=== PATIENT | female | born 1965 | race Caucasian/White ===

== ENCOUNTER → 2016-10-07 | Outpatient (CLI) | payer BC ==
[~2016-10-07] MED LIST: B COCAP3 PO; CALC600T9 PO; CETI10TA99 PO; GLC500 PO; MULTTAB58 PO
== END | disposition home or self-care (01) ==
LOC: C.PAPS 14:20
PROVIDERS: ATTEND Obstetrics & Gynecology
DX: Z01.419 Encounter for gynecological examination (general) (routine) without abnormal findings (principal)

== ENCOUNTER → 2016-11-27 | Outpatient (CLI) | payer BC ==
[2016-11-27 11:01] LABS: BASO % 0.5 %; BASO ABS # 0.04 K/uL (0-0.2); COMPLETE YES; EOS % 2.4 %; IG% 0.1 %; LYMPH % 29.2 %; LYMPH ABS # 2.53 K/uL (1.2-3.4); MEAN CELL VOLUME 85.7 fL (80-100); MEAN CORPUSCULAR HEMOGLOBIN 28.5 pg (25-34); MEAN CORPUSCULAR HGB CONC 33.3 g/dl (32-36); MEAN PLATELET VOLUME 10.1 fL (7.4-10.4); MONO % 6.5 %; NEUT % 61.3 %; PLATELET COUNT 364 K/uL (130-400); RED BLOOD COUNT 4.67 M/uL (4.2-5.4); WHITE BLOOD COUNT 8.66 K/uL (4.8-10.8)
[2016-11-27 11:18] LABS: ALT/SGPT 25 U/L (12-78); BLOOD UREA NITROGEN 12 mg/dl (7-18); BUN/CREATININE RATIO 18.5 (10-20); CALCIUM 9.1 mg/dl (8.5-10.1); CARBON DIOXIDE 27 mmol/L (21-32); CHLORIDE 106 mmol/L (98-107); CHOLESTEROL 188 mg/dl (0-200); CREATININE 0.67 mg/dl (0.60-1.20); GLUCOSE 96 mg/dl (70-99); POTASSIUM 3.9 mmol/L (3.5-5.1); SODIUM 141 mmol/L (136-145)
[2016-11-27 11:21] LABS: ALKALINE PHOSPHATASE 84 U/L (45-117); AST/SGOT 12 U/L (15-37); CHOLESTEROL/HDL RATIO 2.8; HDL CHOLESTEROL 67 mg/dl; LDL CHOLESTEROL CALCULATED 92 mg/dl; TRIGLYCERIDES 145 mg/dl (0-150); VERY LOW DENSITY LIPOPROT CALC 29 mg/dl
== END | disposition home or self-care (01) ==
LOC: C.LABBC 08:51
PROVIDERS: ATTEND Nurse Practitioner Family
DX: E88.81 Metabolic syndrome and other insulin resistance (principal); E78.1 Pure hyperglyceridemia; Z11.59 Encounter for screening for other viral diseases

== ENCOUNTER → 2017-03-04 | Outpatient (CLI) | payer BC ==
--- NOTE | 2017-03-04 15:31 | DIAGNOSTIC IMAGING REPORT ---
MRI THE RIGHT KNEE NO CONTRAST CLINICAL HISTORY: Right knee pain. History of recent trauma. COMPARISON STUDY: No previous studies for comparison. FINDINGS: Imaging was performed the sagittal, coronal, and axial planes. There is chondromalacia patella with subchondral marrow edema. There is no evidence of occult femoral or tibial or fibular fracture. The medial and lateral collateral ligaments appear intact. The anterior and posterior cruciate ligaments appear intact. No meniscal tears are visualized. IMPRESSION: 1. No evidence of cruciate or collateral ligament disruption 2. No evidence of meniscal tear 3. 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 03/04/2017 3:30 PM Dictated Date/Time: 03/04/2017 3:27 PM
== END | disposition home or self-care (01) ==
LOC: C.MRIBC 14:23
PROVIDERS: ATTEND Orthopaedic Surgery
DX: M25.561 Pain in right knee (principal)

== ENCOUNTER → 2017-03-15 | Outpatient (CLI) | payer BC ==
--- NOTE | 2017-03-17 12:32 | MAMMOGRAPHY REPORT ---
BILATERAL DIGITAL SCREENING MAMMOGRAM TOMOSYNTHESIS WITH CAD: 03/15/2017 CLINICAL HISTORY: Routine screening. Patient has no complaints. TECHNIQUE: Breast tomosynthesis in addition to standard 2D mammography was performed. Current study was also evaluated with a Computer Aided Detection (CAD) system. COMPARISON: Comparison is made to exams dated: 03/13/2016 mammogram, 03/11/2015 mammogram, 03/07/2014 ma mmogram, 01/23/2013 mammogram, 01/19/2012 mammogram, and 01/13/2011 mammogram - [facility] er. BREAST COMPOSITION: There are scattered areas of fibroglandular density in both breasts. FINDINGS: There are a few benign-appearing calcifications in the breasts. No suspicious mass, kobe ectural distortion or cluster of suspicious microcalcifications is seen. IMPRESSION: ACR BI-RADS CATEGORY 1: NEGATIVE There is no mammographic evidence of malignancy. A 1 year screening mammogram is recommended. The pa tient will receive written notification of the results. Approximately 10% of breast cancers are not detected with mammography. A negative mammographic report should not delay biopsy if a clinically suggestive mass is present. Ashley Elena M.D. ay/:03/15/2017 15:35:56 Pointing Machine Operator: Shirley PAYNE(R)(M), [facility] letter sent: Normal 1/2 BI-RADS Code: ACR BI-RADS Category 1: Negative
== END | disposition home or self-care (01) ==
LOC: C.MAMM 07:27
PROVIDERS: ATTEND Obstetrics & Gynecology
DX: Z12.31 Encounter for screening mammogram for malignant neoplasm of breast (principal)

== ENCOUNTER → 2017-05-14 | Outpatient (CLI) | payer BC ==
[2017-05-14 10:57] LABS: BASO % 0.4 %; BASO ABS # 0.03 K/uL (0-0.2); COMPLETE YES; EOS % 3.4 %; HEMATOCRIT 39.7 % (37-47); IG% 0.1 %; LYMPH % 29.6 %; LYMPH ABS # 2.38 K/uL (1.2-3.4); MEAN CELL VOLUME 86.1 fL (80-100); MEAN CORPUSCULAR HEMOGLOBIN 29.1 pg (25-34); MEAN CORPUSCULAR HGB CONC 33.8 g/dl (32-36); MEAN PLATELET VOLUME 10.4 fL (7.4-10.4); MONO % 7.8 %; NEUT % 58.7 %; PLATELET COUNT 361 K/uL (130-400); RED BLOOD COUNT 4.61 M/uL (4.2-5.4); WHITE BLOOD COUNT 8.05 K/uL (4.8-10.8)
[2017-05-14 11:09] LABS: ALT/SGPT 49 U/L (12-78); AST/SGOT 26 U/L (15-37); BLOOD UREA NITROGEN 12 mg/dl (7-18); BUN/CREATININE RATIO 14.4 (10-20); CALCIUM 8.9 mg/dl (8.5-10.1); CARBON DIOXIDE 29 mmol/L (21-32); CHLORIDE 104 mmol/L (98-107); CREATININE 0.81 mg/dl (0.60-1.20); GLUCOSE 93 mg/dl (70-99); POTASSIUM 3.7 mmol/L (3.5-5.1); SODIUM 139 mmol/L (136-145)
[2017-05-14 11:12] LABS: ALB/GLOB RATIO 0.8 (0.9-2); ALKALINE PHOSPHATASE 100 U/L (45-117); CHOLESTEROL 196 mg/dl (0-200); CHOLESTEROL/HDL RATIO 2.6; HDL CHOLESTEROL 76 mg/dl; LDL CHOLESTEROL CALCULATED 95 mg/dl; TRIGLYCERIDES 124 mg/dl (0-150); VERY LOW DENSITY LIPOPROT CALC 25 mg/dl
[2017-05-14 11:23] LABS: ESTIMATED AVERAGE GLUCOSE 114 mg/dl; HA1C FLAG Normal (Normal)
[2017-05-14 11:31] LABS: RATIO 18.6 mcg/mg (0-30.0)
== END | disposition home or self-care (01) ==
LOC: C.LABBC 08:06
PROVIDERS: ATTEND Nurse Practitioner Family
DX: E88.81 Metabolic syndrome and other insulin resistance (principal); J45.909 Unspecified asthma, uncomplicated; E78.1 Pure hyperglyceridemia; E66.9 Obesity, unspecified

== ENCOUNTER → 2017-10-19 | Outpatient (CLI) | payer OTHER | END | disposition home or self-care (01) | LOC: C.PAPS 12:02 | PROVIDERS: ATTEND Obstetrics & Gynecology | DX: Z01.419 Encounter for gynecological examination (general) (routine) without abnormal findings (principal) ==

== ENCOUNTER 2022-09-16 22:04 | Observation (INO) ==
[2022-09-16 22:58] LABS: Basophils # (auto) 0.07 K/uL (0-0.2); Basophils % (auto) 0.6 %; Eosinophils # (auto) 0.23 K/uL (0-0.50); Eosinophils % (auto) 1.8 %; Hematocrit (blood only) 37.6 % (34.1-44.9); Hemoglobin 12.7 g/dl (12.0-16.0); Immature Granulocytes # (auto) 0.08 K/uL (0.00-0.02); Immature Granulocytes % (auto) 0.6 %; Lymphocytes # (auto) 2.35 K/uL (1.2-3.4); Lymphocytes % (auto) 18.8 %; Mean Corpuscular Hemoglobin 28.5 pg (25.0-34.0); Mean Corpuscular Hgb Conc 33.8 g/dL (32.0-36.0); Mean Corpuscular Volume 84.5 fL (80.0-100.0); Mean Platelet Volume 9.7 fL (9.4-12.3); Monocytes # (auto) 0.79 K/uL (0.24-0.82); Monocytes % (auto) 6.3 %; Neutrophils # (auto) 9.01 K/uL (1.4-6.5); Neutrophils % (auto) 71.9 %; Platelet Count 550 K/uL (130-400); RDW Standard Deviation 40.2 fL (36.4-46.3); Red Blood Count 4.45 M/uL (3.93-5.22); White Blood Count 12.53 K/ul (4.8-10.8)
[2022-09-16 23:02] LABS: Appearance Urine Cloudy (Clear); Bacteria Urine Automated Negative (Negative); Blood Urine Negative (Negative); Color Urine Dark Yellow; Epithelial Cell Urine Auto >30 /lpf (0-5); Glucose Urine UA Negative (Negative); Ketones Urine Trace (Negative); Leukocyte Esterase Urine 1+ (Negative); Nitrite Urine Positive (Negative); Protein Urine 1+ (Negative); RBC Urine Automated 0-4 /hpf (0-4); Specific Gravity Urine 1.026 (1.000-1.030); Urobilinogen Urine Negative (Negative)
[2022-09-16 23:08] LABS: Bilirubin Urine 3+ (Negative)
[2022-09-16 23:18] LABS: Cast Urine Automated 0 /lpf (0-5); Mucus Urine Present (None Prsent)
[2022-09-16 23:22] LABS: Albumin Globulin Ratio 1.1 (0.9-2); BUN Creatinine Ratio 19.7 (10-20); Bilirubin,Total 3.1 mg/dl (0.2-1.0); Calcium 9.9 mg/dl (8.5-10.1); Creatinine Clr Calc Pharmacy 84.5 ml/min; Est GFR (African American) 99.5 ml/min; Est GFR (Non-African American) 85.9 ml/min; Globulin 3.5 gm/dl (2.5-4.0); Potassium 2.9 mmol/L (3.5-5.1); Total Protein 7.5 gm/dl (6.0-8.3)
[2022-09-16] MEDS ORDERED: ONDANSETRON INJ 2 MG/ML 2 ML VIAL IV STA (23:53)
[2022-09-16] MEDS ORDERED: MoRPHine SULFATE 4 MG/ML 1 ML CARP\\VIAL IV STA (23:53)
[2022-09-16] MEDS ORDERED: LACTATED RINGER'S 1,000 ML IV ONE (23:54)
[2022-09-17 00:05] LABS: Magnesium 2.1 mg/dl (1.7-2.4)
[2022-09-17] MEDS ORDERED: SODIUM CHLORIDE 0.9% 1000ML 1,000 ML IV ONE (00:05)
--- NOTE | 2022-09-17 00:06 | Emergency Department Note ---
Impression & Plan Acute cholecystitis, Transaminitis, Nausea & vomiting, Hypokalemia ED Provider Note Provider: Zachariah Friedman MD DATE OF SERVICE: 09/16/2022 CHIEF COMPLAINT: Right upper abdominal pain, nausea HISTORY OF PRESENT ILLNESS: Patient is a 57-year-old female history of hypertension, GERD/gastritis, IBS, prior resected ovarian mass, and diabetes presenting here today with onset of waxing waning right upper quadrant pain rating to the right back over the past approximate week. Symptoms coming and going but likely provoked by food. Vomiting and nausea at times. Not able to keep down food or drink. Feeling dehydrated. No trauma or fevers reported. No other sick contacts. Reports that urine seems a bit orange in color. Has been using some Tylenol without significant improvement of symptoms. Sweaty and chills at times. Did talk with GI doctor today who gave her pantoprazole which she has not taken yet. PAST MEDICAL HISTORY: As noted above MEDICATIONS: Reviewed home medications SOCIAL HISTORY: Non-smoker PHYSICAL EXAM: GENERAL: alert and oriented grabbing her upper abdomen appears uncomfortable on the bed Head: normocephalic and atraumatic EYES: No injection, discharge or icterus. NECK: Trachea midline. Supple. ENT: Mucous membranes pink and moist. LUNGS: Airway patent. No retractions. Breath sounds clear HEART: Regular rate and rhythm. Some right lower chest wall tenderness ABDOMEN: Soft significant tenderness in the right upper quadrant of the abdomen. No lower abdominal tenderness. BACK: Some tenderness to the right flank in the upper abdomen and flank SKIN: Acyanotic, warm, dry, without rashes EXTREMITIES: Without swelling, tenderness or deformity NEUROLOGICAL: No focal deficits. No aphasia. No facial droop or slurred speech. Ambulatory. EK bpm normal sinus rhythm. No PVC or PAC. No acute ST segment elevation or depression with a QTC of 450. CONTINUOUS CARDIAC MONITORING: was ordered and showed a heart rate of 80s-100s bpm in normal sinus rhythm to sinus tachycardia Patient's laboratory studies and imaging reviewed. Differential includes Appendicitis, infections, diverticulitis, UTI/pyelonephritis, obstruction, mesenteric ischemia, aortic pathology, inflammatory bowel disease, renal colic, PUD, pancreatitis, biliary pathology, h ernia, volvulus, constipation, PE, cardiac, as well as other pathologies. IMPRESSION/MEDICAL DECISION MAKING: Patient with significant right upper quadrant pain radiation to the right back with some tenderness significantly in the right upper quadrant. Nausea and vomiting. No trauma history. No sick contacts. Do not see a reason for acute infectious hepatitis. Urinalysis and basic labs obtained. Some hypokalemia noted. Decreased intake likely related. Given some IV fluids. Slight melina kocytosis. No anemia. Urinalysis questions possible infection although some contamination. Is nitrate positive. Bilirubin also mildly elevated 3.1. Lipase sent. EKG completed and doubt this is cardiac in nature; EKG is reassuring. Will complete a CT scan of the abdomen pelvis and given that the pain extends up and under the ribs and her appearance of significant discomfort we will additionally complete a CT of the chest as well to exclude pulmonary involvement. Hepatitis panel be sent for completeness. Lipase not elevated. CT scan of the chest was reassuring but the CT of the abdomen pelvis is concerning for acute cholecystitis. Discussed with general surgery. Patient with penicillin allergy. Ciprofloxacin and Flagyl ordered. Hospitalist to admit. DIAGNOSIS: Acute cholecystitis, elevated LFTs, nausea and vomiting, hypokalemia DISPOSITION: Evaluated by the surgery team as well as the hospitalist team. Preliminary Findings Only See Final Report For Complete Findings CTA CHEST: No evidence of PE. Lungs are clear. No pleural effusions. No adenopathy. Heart size is normal. Aorta is unremarkable. Radiologist: Jeb Hendrickson MD Study ready at 00:42 and initial results transmitted at 00:55 Preliminary Findings Only See Final Report For Complete Findings CT ABDOMEN & PELVIS With Contrast: CT findings would suggest acute cholecystitis. No cholelithiasis or biliary ductal dilatation seen on this examination but right upper quadrant ultrasound is recommended for more complete evaluation. Radiologist: Jeb Hendrickson MD Study ready at 00:42 and initial results transmitted at 00:56 Past Med/Surg History Medical History Asthma GERD (gastroesophageal reflux disease) High frequency hearing loss of both ears History of COVID-19 (~07/14/20) Hypertension Obesity Ovarian mass Sleep apnea Tinnitus, bilateral Surgical History History of back surgery History of section History of colonoscopy History of esophagogastroduodenoscopy (EGD) History of oral surgery History of tonsillectomy History of tubal ligation S/P total abdominal hysterectomy and bilateral salpingo-oophorectomy Family History Grandmother (Maternal) Breast cancer Father Myocardial infarction Stroke Hypertension Pure hypercholesterolemia FH: coronary artery bypass surgery Coronary heart disease Mother Hypertension Diabetes Supraventricular tachycardia Obesity Other Ulcerative colitis Denies family history of Colon cancer Ovarian cancer Prostate cancer Colorectal cancer Social History Smoking Status: Never smoker Tobacco Type: Cigarettes Age Started Using Tobacco: 12; Age Quit Using Tobacco: 30; Second Hand Exposure: No; Hx Alcohol Use: Yes Alcohol type: wine and hard liquor Alcohol Intake Frequency: Monthly or Less Hx Substance Use: No Preferred Language: Japanese Communication Ability: Effective Visual Impairment: No Limitations Hearing Ability: Normal Light Coil Winder Required: No Beliefs That Will Affect Care: None marital status: Current Living Situation: Spouse current occupational status: employed current occupation: [employer] Feels Safe at Home: Yes Childhood Exposure to Second-Hand Smoke: No Diet Comment: FODMAP? Dental Care, Regularly: Yes Physical Activity Frequency: 3-4 Times per Week Physical Activity Frequency Comment: walking Seatbelt Use: always Sunscreen Use: Yes Assistive Devices: Cane, Glasses and Walker Allergies Allergies Allergy/AdvReac Type Severity Reaction Status Date / Time losartan Allergy Severe Myalgia Verified 08/24/22 15:30 Penicillins Allergy Intermediate rash Verified 08/24/22 15:30 prednisone Allergy Intermediate reddness Verified 08/24/22 15:30 trunk bee venom protein (honey bee) Allergy Unknown Difficulty Verified 08/24/22 15:30 Breathing peach Allergy Unknown LIPS SWELL Verified 08/24/22 15:30 lactase [From Dairy Aid] AdvReac Intermediate abdominal Verified 08/24/22 15:30 bloating Home Meds Home Medications Medication Instructions Recorded Confirmed diclofenac sodium 75 mg 75 mg PO QAM 07/11/21 08/24/22 tablet,delayed release Previous Rx's Medication Instructions Recorded inhalational spacing device #1 ea 06/28/19 (LiteAire MDI Chamber) ipratropium 0.5 mg-albuterol 3 mg 3 ml inhalation QID PRN history of 07/24/20 (2.5 mg base)/3 mL nebulization acute bronchitis with bronchospasm soln #1 mL clobetasol 0.05 % topical ointment See Rx Instructions topical 09/03/21 .COMPLEX PRN lichen Sclerosus et atrophicus #30 grams mecobalamin (vitamin B12) 1,000 1,000 mcg sublingual DAILY #30 tabs 02/02/22 mcg disintegrating tablet,sublingual valacyclovir 500 mg tablet 500 mg PO BID PRN outbreak #6 tabs 04/06/22 (Valtrex) albuterol sulfate 90 mcg/actuation 1 inh inhalation Q6H PRN shortness 06/11/22 aerosol inhaler (Ventolin HFA) of breath or wheezing #18 grams losartan 50 mg-hydrochlorothiazide See Rx Instructions .Route 07/23/22 12.5 mg tablet .COMPLEX #90 tabs linaclotide 72 mcg capsule 72 mcg PO DAILY #30 caps 07/28/22 (Linzess) tirzepatide 5 mg/0.5 mL 5 mg (0.5 mL) subcut Q7D #2 mL 08/24/22 subcutaneous pen injector (Saiunmariaelena) metformin 500 mg tablet 500 mg PO BID #180 tabs 09/16/22 pantoprazole 40 mg tablet,delayed 40 mg PO DAILY #30 tabs 09/16/22 release Results & Data (ED) Vital Signs Vital Signs - 24 hr 09/16/22 22:09 09/17/22 00:00 Temperature 36.7 C Temperature Source Temporal Artery Scan Pulse Rate 103 H Pulse Rate [Apical] 85 Respiratory Rate 18 20 Respiratory Effort / Characteristics Non-Labored Spontaneous Respiratory Depth Normal Blood Pressure 157/88 H Blood Pressure [Left Arm] 134/78 Blood Pressure Mean 111 Blood Pressure Mean [Left Arm] 96 Blood Pressure Position Sitting Pulse Oximetry 97 95 Oxygen Delivery Method Room Air Sepsis Recent Fever Within 48 Hours No Sepsis New/Unexplained Change in Mental Status No Sepsis Action Taken by Nursing No Action Required Laboratory Data 09/16/22 22:37 09/16/22 22:37 Lab Results 09/16/22 09/16/22 09/16/22 Range/Units 22:37 22:37 22:37 WBC 12.53 H (4.8-10.8) K/ul RBC 4.45 (3.93-5.22) M/uL Hgb 12.7 (12.0-16.0) g/dl Hct 37.6 (34.1-44.9) % MCV 84.5 (80.0-100.0) fL MCH 28.5 (25.0-34.0) pg MCHC 33.8 (32.0-36.0) g/dL RDW Std Deviation 40.2 (36.4-46.3) fL RDW Coeff of Lele 13.0 (11.5-14.5) % Plt Count 550 H (130-400) K/uL MPV 9.7 (9.4-12.3) fL Immature Gran % (Auto) 0.6 % Neut % (Auto) 71.9 % Lymph % (Auto) 18.8 % Trigg % (Auto) 6.3 % Eos % (Auto) 1.8 % Baso % (Auto) 0.6 % Neut # (Auto) 9.01 H (1.4-6.5) K/uL Lymph # (Auto) 2.35 (1.2-3.4) K/uL Trigg # (Auto) 0.79 (0.24-0.82) K/uL Eos # (Auto) 0.23 (0-0.50) K/uL Baso # (Auto) 0.07 (0-0.2) K/uL Immature Gran # (Auto) 0.08 H (0.00-0.02) K/uL Sodium 140 (136-145) mmol/L Potassium 2.9 L (3.5-5.1) mmol/L Chloride 97 L (98-107) mmol/L Carbon Dioxide 32 (21-32) mmol/L Anion Gap 11 (3-11) BUN 15 (6-23) mg/dl Creatinine 0.76 (0.6-1.2) mg/dl Est Cr Clr Drug Dosing 84.5 ml/min Est GFR ( Amer) 99.5 ml/min Est GFR (Non-Af Amer) 85.9 ml/min BUN/Creatinine Ratio 19.7 (10-20) Glucose 122 H (70-99(Fasting)) mg/dl Calcium 9.9 (8.5-10.1) mg/dl Magnesium 2.1 (1.7-2.4) mg/dl Total Bilirubin 3.1 H (0.2-1.0) mg/dl AST 370 H (13-39) U/L ALT 497 H (7-52) U/L Alkaline Phosphatase 274 H (34-104) U/L Total Protein 7.5 (6.0-8.3) gm/dl Albumin 4.0 (3.4-5.0) gm/dl Globulin 3.5 (2.5-4.0) gm/dl Albumin/Globulin Ratio 1.1 (0.9-2) Lipase 61 (11-82) U/L Urine Color Dark Yellow Urine Appearance Cloudy A (Clear) Urine pH 5.0 (4.5-7.5) Ur Specific [place] 1.026 (1.000-1.030) Urine Protein 1+ H (Negative) Urine Glucose (UA) Negative (Negative) Urine Ketones Trace H (Negative) Urine Blood Negative (Negative) Urine Nitrite Positive A (Negative) Urine Bilirubin 3+ H (Negative) Urine Urobilinogen Negative (Negative) Ur Leukocyte Esterase 1+ H (Negative) Urine WBC (Auto) 10-30 H (0-5) /hpf Urine RBC (Auto) 0-4 (0-4) /hpf U Hyaline Cast (Auto) 0 (0-5) /lpf U Epithel Cells (Auto) >30 H (0-5) /lpf Urine Bacteria (Auto) Negative (Negative) Urine Mucus Present A (None Prsent) SARS-CoV-2 (PCR) (Negative) Influenza Type A (PCR) (Neg) Influenza Type B (PCR) (Neg) RSV (RT-PCR) (Neg) 09/17/22 Range/Units 00:00 WBC (4.8-10.8) K/ul RBC (3.93-5.22) M/uL Hgb (12.0-16.0) g/dl Hct (34.1-44.9) % MCV (80.0-100.0) fL MCH (25.0-34.0) pg MCHC (32.0-36.0) g/dL RDW Std Deviation (36.4-46.3) fL RDW Coeff of Lele (11.5-14.5) % Plt Count (130-400) K/uL MPV (9.4-12.3) fL Immature Gran % (Auto) % Neut % (Auto) % Lymph % (Auto) % Trigg % (Auto) % Eos % (Auto) % Baso % (Auto) % Neut # (Auto) (1.4-6.5) K/uL Lymph # (Auto) (1.2-3.4) K/uL Trigg # (Auto) (0.24-0.82) K/uL Eos # (Auto) (0-0.50) K/uL Baso # (Auto) (0-0.2) K/uL Immature Gran # (Auto) (0.00-0.02) K/uL Sodium (136-145) mmol/L Potassium (3.5-5.1) mmol/L Chloride (98-107) mmol/L Carbon Dioxide (21-32) mmol/L Anion Gap (3-11) BUN (6-23) mg/dl Creatinine (0.6-1.2) mg/dl Est Cr Clr Drug Dosing ml/min Est GFR ( Amer) ml/min Est GFR (Non-Af Amer) ml/min BUN/Creatinine Ratio (10-20) Glucose (70-99(Fasting)) mg/dl Calcium (8.5-10.1) mg/dl Magnesium (1.7-2.4) mg/dl Total Bilirubin (0.2-1.0) mg/dl AST (13-39) U/L ALT (7-52) U/L Alkaline Phosphatase (34-104) U/L Total Protein (6.0-8.3) gm/dl Albumin (3.4-5.0) gm/dl Globulin (2.5-4.0) gm/dl Albumin/Globulin Ratio (0.9-2) Lipase (11-82) U/L Urine Color Urine Appearance (Clear) Urine pH (4.5-7.5) Ur Specific [place] (1.000-1.030) Urine Protein (Negative) Urine Glucose (UA) (Negative) Urine Ketones (Negative) Urine Blood (Negative) Urine Nitrite (Negative) Urine Bilirubin (Negative) Urine Urobilinogen (Negative) Ur Leukocyte Esterase (Negative) Urine WBC (Auto) (0-5) /hpf Urine RBC (Auto) (0-4) /hpf U Hyaline Cast (Auto) (0-5) /lpf U Epithel Cells (Auto) (0-5) /lpf Urine Bacteria (Auto) (Negative) Urine Mucus (None Prsent) SARS-CoV-2 (PCR) NEGATIVE (Negative) Influenza Type A (PCR) Negative (Neg) Influenza Type B (PCR) Negative (Neg) RSV (RT-PCR) Negative (Neg) Administered Medications Potassium Chloride (K Raul / Wtr) 10 meq in 100 mls @ 100 mls/hr IV ONE ONE; Protocol Stop: 09/17/22 01:31 Last Admin: 09/17/22 00:58 Dose: 100 mls/hr Documented By: MEGAN Discontinued Medications Lactated Ringer's (Lr) 1,000 mls @ 999 mls/hr IV .Q1H1M ONE Stop: 09/17/22 00:54 Last Admin: 09/17/22 00:01 Dose: 999 mls/hr Documented By: MEGAN Ioversol (Optiray 320 500ml) 125 ml IV ONCE ONE Stop: 09/17/22 00:32 Last Admin: 09/17/22 00:31 Dose: 113 ml Documented By: MIKO Morphine Sulfate (Morphine Sulfate 4 Mg/Ml 1 Ml Carp\Vial) 4 mg IV NOW STA Stop: 09/16/22 23:54 Last Admin: 09/16/22 23:59 Dose: 4 mg Documented By: MEGAN Ondansetron HCl (Ondansetron Inj 2 Mg/Ml 2 Ml Vial) 4 mg IV NOW STA Stop: 09/16/22 23:54 Last Admin: 09/16/22 23:59 Dose: 4 mg Documented By: MEGAN Discharge Plan Visit Data Chief Complaint: Flank Pain Stated Complaint: ABDOMINAL PAIN, BACK PAIN ED Provider: Zachariah Friedman Discharge Problem: Acute cholecystitis, Transaminitis, Nausea & vomiting, Hypokalemia Patient Disposition: Being Evaluated by Hospitalist Forms Stand Alone Forms: My [employer] Prescriptions Prescriptions: No Action ipratropium-albuterol 0.5 mg-3 mg(2.5 mg base)/3 mL solution for nebulization 3 ml inhalation QID PRN (Reason: history of acute bronchitis with bronch ospasm) Qty: 1 3RF clobetasol 0.05 % ointment See Rx Instructions topical .COMPLEX PRN (Reason: lichen Sclerosus et atrophicus) Qty: 30 1RF Rx Instructions: apply a small amount topical once weekly PRN; albuterol sulfate [Ventolin HFA] 90 mcg/actuation HFA aerosol inhaler 1 inh INH Q6H PRN (Reason: shortness of breath or wheezing) Qty: 18 1RF losartan-hydrochlorothiazide 50-12.5 mg tablet See Rx Instructions .ROUTE .COMPLEX Qty: 90 1RF Dose Instruction: TAKE 1/2 TABLET BY MOUTH TWICE A DAY Rx Instructions: TAKE 1/2 TABLET BY MOUTH TWICE A DAY Linzess 72 mcg capsule 72 mcg PO DAILY Qty: 30 2RF pantoprazole 40 mg tablet,delayed release (DR/EC) 40 mg PO DAILY Qty: 30 2RF (DME) LiteAire MDI Chamber spacer See Dose Instructions .ROUTE .MEDSUPPLY Qty: 1 0RF Dose Instruction: As directed Rx Instructions: As directed valacyclovir [Valtrex] 500 mg tablet 500 mg PO BID PRN (Reason: outbreak) Qty: 6 5RF Rx Instructions: 1 Tablet twice a day for 3 days mecobalamin (vitamin B12) 1,000 mcg tablet,disintegrating 1,000 mcg sublingual DAILY Qty: 30 0RF Rx Instructions: place tablet under tongue and allow to dissolve for at least30 secs before swallowing Mounjaro 5 mg/0.5 mL pen injector 5 mg subcut Q7D Qty: 2 1RF metformin 500 mg tablet 500 mg PO BID Qty: 180 1RF diclofenac sodium 75 mg Tablet,Delayed Release (Dr/Ec) 75 mg PO QAM Referrals Referrals: Fred Street III, CRNP [Primary Care Provider] -
[2022-09-17] MEDS ORDERED: OPTIRAY 320 500ml IV ONE (00:31)
[2022-09-17] MEDS ORDERED: POTASSIUM CHLORIDE / WTR 10 MEQ/100 ML PLCT IV ONE (00:32)
[2022-09-17 00:58] LABS: Influenza A virus by PCR Negative (Neg); Influenza B virus by PCR Negative (Neg); RSV by PCR Negative (Neg); SARS CoV2 RNA(COVID-19) Ceph NEGATIVE (Negative)
[2022-09-17] MEDS ORDERED: CIPROFLOXACIN / D5W 400 MG/200 ML BAG IV STA (01:27)
[2022-09-17] MEDS ORDERED: metroNIDAZOLE 500 MG/100 ML BAG IV STA (01:27)
--- NOTE | 2022-09-17 01:38 | Surgery Consultation ---
Date of Consultation September 17, 2022 Assessment & Plan (1) Acute cholecystitis: I discussed with the treating emergency room physician and the patient is being admitted on the hospitalist service. Recommend proceeding as follows: Provide analgesics Provide antiemetics Implement antibiotics. Due to the patient's noted penicillin allergy they have elected to initiate ciprofloxacin and Flagyl Provide IV fluid for hydration It appears as though the patient may benefit from a cholecystectomy. However the patient does have elevated LFTs which would warrant a GI evaluation as patient may require an ERCP prior to undergoing cholecystectomy. I discussed with the medical service and they are planning on ordering an MRCP Serial labs to be followed Additional recommendations be forthcoming based on MRCP results as well as recommendations from gastroenterology We will continue to follow along while patient is hospitalized Supervising Physician Co-Signing Physician Notes Dr Pearson- ppts history and studies reviewed and discussed with Mac Garland- has evidence of acute cholecystitis and elevated TB, AST/ALT- possible CBD obstruction. As described above , will need GI eval and possible ERCP and Lap deepak at some point. IV atbx as ordered History of Present Illness Reason for Consultation: Acute cholecystitis. History of Present Illness This is a 57-year-old female who presented to the emergency department secondary to abdominal pain. Patient notes that her symptoms began on September 08, 2022 where the patient had some vague abdominal pain after eating. She did have associated nausea vomiting and did not have any fevers but did have some sweats and chills. She said that her symptoms were quite vague and ultimately resolved however they recurred earlier today where patient had much more severe right upper quadrant pain. She noted that the pain radiated to her right shoulder as well as to her back without palliative or provocative factors. Again she has had associated nausea and vomiting. As she notes that the pain was much more severe she presented to the emergency department. She does report that she has had prior surgeries in the form of a , a tubal ligation, and also a hysterectomy at which time she had an ovarian mass removed that was noted to be benign. Since arrival to the emergency department the patient has had labs and imaging which I independently reviewed. A CT scan of the chest did not show any evidence of pulmonary embolism. A CT scan of the abdomen and pelvis showed findings concerning for acute cholecystitis. No gallstones or biliary ductal dilatation was noted however. Labs include a CBC her white blood cell count had a slight elevation at 12.5. Hemoglobin and hematocrit were within the normal range. Platelet count was 550,000. Chemistry profile showed sodium was 140. Potassium was 2.9. BUN and creatinine were both within normal range. She was noted to have elevation of her LFTs with a total bilirubin of 3.1, and AST of 370, and ALT of 497, and an alkaline phosphatase of 274. Her lipase was not elevated. Urinalysis did show positive nitrites along with 1+ leukocyte Estrace and 10-30 white blood cells per high-power field. There is no bacteria on the study. A COVID test was negative. At the time of my interview the patient was resting comfortably in bed and she was in no distress. Allergies Allergy/AdvReac Type Severity Reaction Status Date / Time losartan Allergy Severe Myalgia Verified 08/24/22 15:30 Penicillins Allergy Intermediate rash Verified 08/24/22 15:30 prednisone Allergy Intermediate reddness Verified 08/24/22 15:30 trunk bee venom protein (honey bee) Allergy Unknown Difficulty Verified 08/24/22 15:30 Breathing peach Allergy Unknown LIPS SWELL Verified 08/24/22 15:30 lactase [From Dairy Aid] AdvReac Intermediate abdominal Verified 08/24/22 15:30 bloating Home Medications Medication Instructions Recorded Confirmed Type inhalational spacing device #1 ea 06/28/19 08/24/22 Rx (LiteAire MDI Chamber) ipratropium 0.5 mg-albuterol 3 mg 3 ml inhalation QID PRN history of 07/24/20 08/24/22 Rx (2.5 mg base)/3 mL nebulization acute bronchitis with bronchospasm soln #1 mL diclofenac sodium 75 mg 75 mg PO QAM 07/11/21 08/24/22 History tablet,delayed release clobetasol 0.05 % topical ointment See Rx Instructions topical 09/03/21 08/24/22 Rx .COMPLEX PRN lichen Sclerosus et atrophicus #30 grams mecobalamin (vitamin B12) 1,000 1,000 mcg sublingual DAILY #30 tabs 02/02/22 08/24/22 Rx mcg disintegrating tablet,sublingual valacyclovir 500 mg tablet 500 mg PO BID PRN outbreak #6 tabs 04/06/22 08/24/22 Rx (Valtrex) albuterol sulfate 90 mcg/actuation 1 inh inhalation Q6H PRN shortness 06/11/22 08/24/22 Rx aerosol inhaler (Ventolin HFA) of breath or wheezing #18 grams losartan 50 mg-hydrochlorothiazide See Rx Instructions .Route 07/23/22 08/24/22 Rx 12.5 mg tablet .COMPLEX #90 tabs linaclotide 72 mcg capsule 72 mcg PO DAILY #30 caps 07/28/22 08/24/22 Rx (Linzess) tirzepatide 5 mg/0.5 mL 5 mg (0.5 mL) subcut Q7D #2 mL 08/24/22 08/24/22 Rx subcutaneous pen injector (Mounjaro) metformin 500 mg tablet 500 mg PO BID #180 tabs 09/16/22 09/16/22 Rx pantoprazole 40 mg tablet,delayed 40 mg PO DAILY #30 tabs 09/16/22 Rx release Patient History Medical History Asthma well controlled GERD (gastroesophageal reflux disease) High frequency hearing loss of both ears History of COVID-19 (~07/14/20) headache, fatigue, sinus infection, mild cough, aches, loss of taste & smell. no current problems. Hypertension Obesity Ovarian mass mucinous cystadenoma, s/p bso Sleep apnea cpap Tinnitus, bilateral Surgical History History of back surgery lumbar fusion History of section x1 History of colonoscopy History of esophagogastroduodenoscopy (EGD) History of oral surgery tooth extraction History of tonsillectomy History of tubal ligation S/P total abdominal hysterectomy and bilateral salpingo-oophorectomy Family History Grandmother (Maternal) Breast cancer Father Myocardial infarction Stroke Hypertension Pure hypercholesterolemia FH: coronary artery bypass surgery Coronary heart disease Mother Hypertension Diabetes Supraventricular tachycardia Obesity Other Ulcerative colitis Denies family history of Colon cancer Ovarian cancer Prostate cancer Colorectal cancer Social History Smoking Status: Never smoker Tobacco Type: Cigarettes Age Started Using Tobacco: 12; Age Quit Using Tobacco: 30; Second Hand Exposure: No; Hx Alcohol Use: Yes Alcohol type: wine and hard liquor Alcohol Intake Frequency: Monthly or Less Hx Substance Use: No Preferred Language: Danish Communication Ability: Effective Visual Impairment: No Limitations Hearing Ability: Normal 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 Dental Care, Regularly: Yes Physical Activity Frequency: 3-4 Times per Week Physical Activity Frequency Comment: walking Seatbelt Use: always Sunscreen Use: Yes Assistive Devices: Cane, Glasses and Walker Review of Systems Constitutional: + chills; no fever Eyes: no eye pain Ear, Nose, Mouth, Throat: no ear pain Respiratory: no cough and no dyspnea Cardiovascular: no chest pain Gastrointestinal: as per Subjective / HPI Genitourinary: no dysuria Musculoskeletal: + back pain (Radiating from abdomen) Neurologic: no localized weakness Physical Exam Constitutional: WD/WN, vitals as above Eyes: + anicteric sclerae ENMT: Ears: no hearing impairment and no external ear abnormality Sublingual jaundice is absent Neck: trachea midline Respiratory: normal respiratory effort; no respiratory distress and no labored breathing Cardiovascular: Rate/Rhythm: regular rate and regular rhythm Gastrointestinal (Abdomen): Abdomen is soft, nonrigid, nondistended. Bowel sounds are present. Patient did have pain with palpation near her umbilicus and also to a greater extent the right upper quadrant with a positive Chappell sign. There is no rebound tenderness or guarding. Musculoskeletal: No calf tenderness Skin: normal turgor; no jaundice Neurologic: moves all extremities Psychiatric: A+Ox3, euthymic affect Results & Data ([facility]) Vital Signs (Past 12 Hours) Vital Signs Temp Pulse Pulse Resp BP BP Pulse Ox 09/17/22 00:00 85 20 134/78 95 09/16/22 22:09 36.7 C 103 H 18 157/88 H 97 O2 Del Method 09/17/22 00:00 09/16/22 22:09 Room Air PG Care Time/CCT Total # of Minutes Spent Total Time Spent with Patient: Total time spent is greater than 50% in coordination of care (as documented) at patient's floor/unit and/or counseling patient: Coding Level of Care Code INP/OBS CONSULT LVL 5, 80 MIN Diagnoses Acute cholecystitis K81.0
--- NOTE | 2022-09-17 01:51 | History & Physical Report ---
Date of Service September 17, 2022 Assessment & Plan (1) Acute cholecystitis: (2) Hypokalemia: (3) Diabetes: (4) Osteoarthritis of knees, bilateral: (5) Hyperlipidemia: (6) High frequency hearing loss of both ears: (7) Ovarian mass: (8) IgA deficiency: (9) Gastritis: (10) Irritable bowel syndrome with constipation: (11) Metabolic syndrome: (12) Hypertension: (13) Asthma: (14) GERD (gastroesophageal reflux disease): (15) Sleep apnea: Plan Acute cholecystitis- In the emergency department, patient received the following: K rider 10 mEq x 1, NSS x1 L, Cipro 400 mg IV, Flagyl 500 mg IV, Zofran 4 mg IV, morphine sulfate 4 mg IV As noted on CT scan of abdomen pelvis without contrast NPO Cipro 400 mg IV every 12 hours Flagyl 500 mg IV every 8 hours Of note, patient is allergic to penicillins Zofran 4 mg IV every 6 hours as needed Pantoprazole 40 mg IV daily NSS + KCl 20 mEq at 100 mils per hour MRCP ordered to further assess Consult GI if abnormal MRCP General surgery consult Dr. Daniel Pearson Asthma- Continue usual inhalers: Albuterol sulfate 2 puffs every 6 hours as needed, DuoNebs 4 times daily as needed Diabetes mellitus- Hold Tirzepatide, and metformin Place on Accu-Cheks 4 times daily/every 6 hours, with NovoLog coverage per SSI Hypertension- Hold losartan/HCTZ Hypokalemia- Potassium 2.9 on admission Likely secondary to HCTZ use and not eating due to N/V Given K rider 10 mEq x [address] on NSS + KCl 20 mEq at 100 mils per hour Follow laboratories BMP and magnesium levels serially Gastric dysmotility/IBS-C- Hold linaclotide GERD/Gastritits- Changing pantoprazole from PO to IV B-12 Deficiency- Resume 1000mcg daily supplement post surgery History of Present Illness Chief Complaint: The patient presents to the ED with complaint of off and on abdominal pain, n ausea and vomiting over the past week, thought to be gastritis, that worsened considerably over the past 24 hours Primary Care Provider: Fred Street, III, LUTHER The patient is a 57 yo female with PMH including HTN, DM, GERD, gastritis, B/L knee OA, resected ovarian mass, IgA deficiency, IBS-C, Metabolic Syndrome, Asthma, SAVANNAH and obesity. She presents with symptoms as noted above. Significant abnormal laboratories: WBC 12.53, platelets 550, potassium 2.9,, glucose 122, T. bilirubin 3.1, AST 370, ALT 497, ALP 274. Hepatitis screen pending. COVID-19, flu, and RSV all negative. CT A/P shows acute cholecystitis Allergies Allergy/AdvReac Type Severity Reaction Status Date / Time losartan Allergy Severe Myalgia Verified 08/24/22 15:30 Penicillins Allergy Intermediate rash Verified 08/24/22 15:30 prednisone Allergy Intermediate reddness Verified 08/24/22 15:30 trunk bee venom protein (honey bee) Allergy Unknown Difficulty Verified 08/24/22 15:30 Breathing peach Allergy Unknown LIPS SWELL Verified 08/24/22 15:30 lactase [From Dairy Aid] AdvReac Intermediate abdominal Verified 08/24/22 15:30 bloating Home Medications Medication Instructions Recorded Confirmed Type inhalational spacing device #1 ea 06/28/19 08/24/22 Rx (LiteAire MDI Chamber) ipratropium 0.5 mg-albuterol 3 mg 3 ml inhalation QID PRN history of 07/24/20 08/24/22 Rx (2.5 mg base)/3 mL nebulization acute bronchitis with bronchospasm soln #1 mL diclofenac sodium 75 mg 75 mg PO QAM 07/11/21 08/24/22 History tablet,delayed release clobetasol 0.05 % topical ointment See Rx Instructions topical 09/03/21 08/24/22 Rx .COMPLEX PRN lichen Sclerosus et atrophicus #30 grams mecobalamin (vitamin B12) 1,000 1,000 mcg sublingual DAILY #30 tabs 02/02/2209/03 Rx mcg disintegrating tablet,sublingual valacyclovir 500 mg tablet 500 mg PO BID PRN outbreak #6 tabs 04/06/22 08/24/22 Rx (Valtrex) albuterol sulfate 90 mcg/actuation 1 inh inhalation Q6H PRN shortness 06/11/22 08/24/22 Rx aerosol inhaler (Ventolin HFA) of breath or wheezing #18 grams losartan 50 mg-hydrochlorothiazide See Rx Instructions .Route 11/10/22 12/12/22 Rx 12.5 mg tablet .COMPLEX #90 tabs linaclotide 72 mcg capsule 72 mcg PO DAILY #30 caps 07/28/22 08/24/22 Rx (Linzess) tirzepatide 5 mg/0.5 mL 5 mg (0.5 mL) subcut Q7D #2 mL 08/24/22 08/24/22 Rx subcutaneous pen injector (Mounjaro) metformin 500 mg tablet 500 mg PO BID #180 tabs 09/16/22 09/16/22 Rx pantoprazole 40 mg tablet,delayed 40 mg PO DAILY #30 tabs 09/16/22 Rx release Past Med/Surg History Medical History Asthma well controlled GERD (gastroesophageal reflux disease) High frequency hearing loss of both ears History of COVID-19 (~07/14/20) headache, fatigue, sinus infection, mild cough, aches, loss of taste & smell. no current problems. Hypertension Obesity Ovarian mass mucinous cystadenoma, s/p bso Sleep apnea cpap Tinnitus, bilateral Surgical History History of back surgery lumbar fusion History of section x1 History of colonoscopy History of esophagogastroduodenoscopy (EGD) History of oral surgery tooth extraction History of tonsillectomy History of tubal ligation S/P total abdominal hysterectomy and bilateral salpingo-oophorectomy Family History Grandmother (Maternal) Breast cancer Father Myocardial infarction Stroke Hypertension Pure hypercholesterolemia FH: coronary artery bypass surgery Coronary heart disease Mother Hypertension Diabetes Supraventricular tachycardia Obesity Other Ulcerative colitis Denies family history of Colon cancer Ovarian cancer Prostate cancer Colorectal cancer Social History Smoking Status: Never smoker Tobacco Type: Cigarettes Age Started Using Tobacco: 12; Age Quit Using Tobacco: 30; Second Hand Exposure: No; Hx Alcohol Use: Yes Alcohol type: wine and hard liquor Alcohol Intake Frequency: Monthly or Less Hx Substance Use: No Preferred Language: Cypriot Communication Ability: Effective Visual Impairment: No Limitations Hearing Ability: Normal 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 Dental Care, Regularly: Yes Physical Activity Frequency: 3-4 Times per Week Physical Activity Frequency Comment: walking Seatbelt Use: always Sunscreen Use: Yes Assistive Devices: Cane, Glasses and Walker Review of Systems Review of Systems: The patient denies chest pain, palpitations, shortness of breath, dyspnea on exertion, cough, lower extremity swelling, sore throat, fevers, blood in urine or stool, dysuria, urinary frequency or urgency, lightheadedness, dizziness, headache, memory loss, loss of consciousness, rash, abnormal bruising or bleeding, imbalance, focal or generalized weakness, numbness or tingling in arms or legs, generalized arthralgias or myalgias, back or neck pain, or night sweats. The review of systems is otherwise negative other than for that already noted above, and at least 10 systems have been reviewed. Physical Exam Physical Exam: The patient is awake, alert and oriented 3, well developed and well nourished, normocephalic and atraumatic, lying in bed and in intermittent distress due to abdominal pain HEENT--PERRL, EOMI, mucous membranes and oropharynx dry. Neck--supple. No JVD. No bruits. Thyroid normal, trachea midline, no adenopathy. Heart--normal S1 and S2. No murmurs, rubs or gallops. Lungs--clear bilaterally, no respiratory distress, no accessory muscle use. Abdomen--normal bowel sounds and soft. Tender RUQ/epigstrium. Nondistended Extremities--no cyanosis or clubbing. No edema. Dermatologic--normal skin turgor, normal color, no abnormal lymph nodes, no rash. Neurologic--cranial nerves II through XII grossly intact. Rheumatologic--normal range of motion. Psychiatric--normal affect. Results & Data Results & Data ([facility]) Vital Signs (Past 12 Hours) Vital Signs Temp Pulse Pulse Resp BP BP Pulse Ox 09/17/22 00:00 85 20 134/78 95 09/16/22 22:09 36.7 C 103 H 18 157/88 H 97 O2 Del Method 09/17/22 00:00 09/16/22 22:09 Room Air Laboratory Results Laboratory Results WBC 12.53 K/ul (4.8-10.8) H 09/16/22 22:37 RBC 4.45 M/uL (3.93-5.22) 09/16/22 22:37 Hgb 12.7 g/dl (12.0-16.0) 09/16/22 22:37 Hct 37.6 % (34.1-44.9) 09/16/22 22:37 MCV 84.5 fL (80.0-100.0) 09/16/22 22:37 MCH 28.5 pg (25.0-34.0) 09/16/22 22:37 MCHC 33.8 g/dL (32.0-36.0) 09/16/22 22:37 RDW Std Deviation 40.2 fL (36.4-46.3) 09/16/22 22:37 RDW Coeff of Lele 13.0 % (11.5-14.5) 09/16/22 22:37 Plt Count 550 K/uL (130-400) H 09/16/22 22:37 MPV 9.7 fL (9.4-12.3) 09/16/22 22:37 Immature Gran % (Auto) 0.6 % 09/16/22 22:37 Neut % (Auto) 71.9 % 09/16/22 22:37 Lymph % (Auto) 18.8 % 09/16/22 22:37 [place] % (Auto) 6.3 % 09/16/22 22:37 Eos % (Auto) 1.8 % 09/16/22 22:37 Baso % (Auto) 0.6 % 09/16/22 22:37 Neut # (Auto) 9.01 K/uL (1.4-6.5) H 09/16/22 22:37 Lymph # (Auto) 2.35 K/uL (1.2-3.4) 09/16/22 22:37 [place] # (Auto) 0.79 K/uL (0.24-0.82) 09/16/22 22:37 Eos # (Auto) 0.23 K/uL (0-0.50) 09/16/22 22:37 Baso # (Auto) 0.07 K/uL (0-0.2) 09/16/22 22:37 Immature Gran # (Auto) 0.08 K/uL (0.00-0.02) H 09/16/22 22:37 Sodium 140 mmol/L (136-145) 09/16/22 22:37 Potassium 2.9 mmol/L (3.5-5.1) L 09/16/22 22:37 Chloride 97 mmol/L (98-107) L 09/16/22 22:37 Carbon Dioxide 32 mmol/L (21-32) 09/16/22 22:37 Anion Gap 11 (3-11) 09/16/22 22:37 BUN 15 mg/dl (6-23) 09/16/22 22:37 Creatinine 0.76 mg/dl (0.6-1.2) 09/16/22 22:37 Est Cr Clr Drug Dosing 84.5 ml/min 09/16/22 22:37 Est GFR ( Amer) 99.5 ml/min 09/16/22 22:37 Est GFR (Non-Af Amer) 85.9 ml/min 09/16/22 22:37 BUN/Creatinine Ratio 19.7 (10-20) 09/16/22 22:37 Glucose 122 mg/dl (70-99(Fasting)) H 09/16/22 22:37 Calcium 9.9 mg/dl (8.5-10.1) 09/16/22 22:37 Magnesium 2.1 mg/dl (1.7-2.4) 09/16/22 22:37 Total Bilirubin 3.1 mg/dl (0.2-1.0) H 09/16/22 22:37 AST 370 U/L (13-39) H 09/16/22 22:37 ALT 497 U/L (7-52) H 09/16/22 22:37 Alkaline Phosphatase 274 U/L (34-104) H 09/16/22 22:37 Total Protein 7.5 gm/dl (6.0-8.3) 09/16/22 22:37 Albumin 4.0 gm/dl (3.4-5.0) 09/16/22 22:37 Globulin 3.5 gm/dl (2.5-4.0) 09/16/22 22:37 Albumin/Globulin Ratio 1.1 (0.9-2) 09/16/22 22:37 Lipase 61 U/L (11-82) 09/16/22 22:37 Urine Color Dark Yellow 09/16/22 22:37 Urine Appearance Cloudy (Clear) A 09/16/22 22:37 Urine pH 5.0 (4.5-7.5) 09/16/22 22:37 Ur Specific Rossiter 1.026 (1.000-1.030) 09/16/22 22:37 Urine Protein 1+ (Negative) H 09/16/22 22:37 Urine Glucose (UA) Negative (Negative) 09/16/22 22:37 Urine Ketones Trace (Negative) H 09/16/22 22:37 Urine Blood Negative (Negative) 09/16/22 22:37 Urine Nitrite Positive (Negative) A 09/16/22 22:37 Urine Bilirubin 3+ (Negative) H 09/16/22 22:37 Urine Urobilinogen Negative (Negative) 09/16/22 22:37 Ur Leukocyte Esterase 1+ (Negative) H 09/16/22 22:37 Urine WBC (Auto) 10-30 /hpf (0-5) H 09/16/22 22:37 Urine RBC (Auto) 0-4 /hpf (0-4) 09/16/22 22:37 U Hyaline Cast (Auto) 0 /lpf (0-5) 09/16/22 22:37 U Epithel Cells (Auto) >30 /lpf (0-5) H 09/16/22 22:37 Urine Bacteria (Auto) Negative (Negative) 09/16/22 22:37 Urine Mucus Present (None Prsent) A 09/16/22 22:37 SARS-CoV-2 (PCR) NEGATIVE (Negative) 09/17/22 00:00 Influenza Type A (PCR) Negative (Neg) 09/17/22 00:00 Influenza Type B (PCR) Negative (Neg) 09/17/22 00:00 RSV (RT-PCR) Negative (Neg) 09/17/22 00:00 Diagnostic Findings [facility] Patient: NORMAN WEIR (Female) : 61 Status: ER Date: 09/17/22 00:35 Room #: History: PAIN AT RUQ, SOB Slices: [phone] Priors: Tech: Song Albright @ [phone] Exams: CTA CHEST Contrast: IV Amt: 113 ML OPTIRAY 320 Accession Numbers: [id number] Referring Physician: REFERRED SELF Preliminary Findings Only See Final Report For Complete Findings CTA CHEST: No evidence of PE. Lungs are clear. No pleural effusions. No adenopathy. Heart size is normal. Aorta is unremarkable. Radiologist: Jeb Hendrickson MD Study ready at 00:42 and initial results transmitted at 00:55 *This report constitutes a preliminary interpretation only. Non-acute findings felt to be unrelated to the clinical presentation may not be discussed in this report. The study will be interpreted and a final report will be generated by the local Radiologist the following shift. To reach the [facility] radiology department call [phone]. If a discrepancy is found between the preliminary and final interpretations of this study, please notify us via our Client Portal at [email or web address], under QA Exams. You can also fax this report with a description of the discrepancy, or include the final report, to our daytime fax number [phone]. If faxing, please indicate the severity of discrepancy using one of the following categories: [ ] 1 - Agree/Informational [ ] 2 - Unlikely to Affect Management [ ] 3 - Possible Eventual Change of Management [ ] 4 - Probable Immediate Change of Management For all other patient related information, please fax us at [phone]. [id number] [facility] Patient: NORMAN WEIR (Female) : 61 Status: ER Date: 09/17/22 00:36 Room #: History: RUQ PAIN ELEVATED LFTS Slices: [phone] Priors: Tech: LisaSong dawson @ [phone] Exams: CT ABDOMEN & PELVIS With Contrast Contrast: IV Amt: 113 ML OPTIRAY 320 Accession Numbers: [id number] Referring Physician: REFERRED SELF Preliminary Findings Only See Final Report For Complete Findings CT ABDOMEN & PELVIS With Contrast: CT findings would suggest acute cholecystitis. No cholelithiasis or biliary ductal dilatation seen on this examination but right upper quadrant ultrasound is recommended for more complete evaluation. Radiologist: Jeb Hendrickson MD Study ready at 00:42 and initial results transmitted at 00:56 *This report constitutes a preliminary interpretation only. Non-acute findings felt to be unrelated to the clinical presentation may not be discussed in this report. The study will be interpreted and a final report will be generated by the local Radiologist the following shift. To reach the hospital radiology department call [phone]. If a discrepancy is found between the preliminary and final interpretations of this study, please notify us via our Client Portal at [email or web address], under QA Exams. You can also fax this report with a description of the discrepancy, or include the final report, to our daytime fax number [phone]. If faxing, please indicate the severity of discrepancy using one of the following categories: [ ] 1 - Agree/Informational [ ] 2 - Unlikely to Affect Management [ ] 3 - Possible Eventual Change of Management [ ] 4 - Probable Immediate Change of Management For all other patient related information, please fax us at [phone]. [id number] Code Status & VTE Plan Code Status Full code VTE Prophylaxis Plan VTE Prophylaxis will be ordered: Yes (1) Hypertension Hypertension type: essential hypertension Qualified Code(s): I10 - Essential (primary) hypertension (2) Asthma Asthma complication type: uncomplicated Asthma persistence: persistent Asthma severity: moderate Qualified Code(s): J45.40 - Moderate persistent asthma, uncomplicated
--- NOTE | 2022-09-17 02:34 | Billing Data ---
Date of Service September 17, 2022 Coding Level of Care Code 27655 INT INP/OBS CARE
[2022-09-17] MEDS ORDERED: ALBUTEROL HFA 8 GM INHALER INH PRN (03:16)
[2022-09-17] MEDS ORDERED: MoRPHine SULFATE 4 MG/ML 1 ML CARP\\VIAL IV PRN (03:16)
[2022-09-17] MEDS ORDERED: GLUCAGON FOR INJ 1 MG VIAL SQ PRN (03:16)
[2022-09-17] MEDS ORDERED: GLUCOSE 10 TAB/TUBE PO PRN (03:16)
[2022-09-17] MEDS ORDERED: CARBOHYDRATES FOR HYPOGLYCEMIA PO PRN (03:16)
[2022-09-17] MEDS ORDERED: ALBUT/IPRATROP 3MG/0.5MG NEB 3 ML VIAL INH PRN (03:16)
[2022-09-17] MEDS ORDERED: DEXTROSE 50% 50 ML SYRINGE IV PRN (03:16)
[2022-09-17] MEDS ORDERED: GLUCOSE 40% GEL 15 GM TUBE PO PRN (03:16)
[2022-09-17] MEDS ORDERED: ONDANSETRON INJ 2 MG/ML 2 ML VIAL IV PRN (03:16)
[2022-09-17] MEDS ORDERED: NSS + 20MEQ KCL 20 MEQ/1,000 ML BAG IV SCH (04:00)
[2022-09-17] MEDS ORDERED: Nursing to Pharmacy Communication SCH (04:30)
[2022-09-17] MEDS: INSULIN ASPART PER UNIT SC SCH ×2 (06:32→12:26)
--- NOTE | 2022-09-17 07:25 | Magnetic Resonance Report ---
MRCP CLINICAL HISTORY: acute cholecystitis on CT, assess for stones TECHNIQUE: Utilizing a 1.5 Jemma magnet and dedicated coil, multiplanar, multiecho imaging [facility] abdomen was performed utilizing heavily T2 weighted pulsing sequences without IV contrast. COMPARISON STUDY: CT of the abdomen and pelvis September 17, 2022 and November 03, 2021. FINDINGS: No hepatic lesions are identified on unenhanced exam. There is no intra or extra hepatic bi liary ductal dilatation. A 3 mm calculus within the distal common bile duct is present. There are mul tiple gallstones within the gallbladder. Moderate gallbladder wall thickening is noted. There is trac e pericholecystic fluid. No peripancreatic fluid is present. There is no pancreatic ductal dilatation . Prominent eder hepatis lymph nodes measure up to 1 cm in short axis diameter. Spleen, adrenal glan ds and kidneys are unremarkable. Is no hydronephrosis. Caliber of visualized small and large bowel ar e normal. IMPRESSION: 1. 3 mm distal common bile calculus. No biliary ductal dilatation. This finding will be called/faxed to ordering provider at time of dictation. 2. Findings suggestive of acute cholecystitis. ACT 112: Negative or not required by law. Electronically signed by: David Vazquez M.D. 09/17/2022 7:23 AM
[2022-09-17] MEDS ORDERED: INSULIN ASPART PER UNIT SC SCH (07:30)
--- NOTE | 2022-09-17 07:49 | CT Scan Report ---
CT ANGIOGRAPHY OF THE CHEST, PULMONARY EMBOLUS PROTOCOL CLINICAL HISTORY: Right upper quadrant pain and shortness of breath. Evaluate for pulmonary embolus. COMPARISON STUDY: Chest radiograph September 25, 2014. TECHNIQUE: Following IV administration of 113 mL of Optiray, helical axial images of the chest were o btained utilizing the pulmonary embolus protocol. Maximal intensity projections and sagittal and cor onal reformats were viewed on an independent 3D workstation. IV contrast was administered without co mplication. Automated exposure control was utilized for the study. A dose lowering technique was ut ilized adhering to the principles of ALARA. CT DOSE: 1950.92 mGy.cm FINDINGS: No pulmonary emboli are identified. There is no thoracic aortic dissection. No pericardial effusion is present. Size of the heart is at the upper limits of normal. There is no thoracic lympha denopathy. Prominent left axillary lymph node is likely benign. No pneumothorax or pleural effusion i s present. Groundglass opacities reflect atelectasis. No consolidation to suggest pneumonia. Abdomen and pelvis CT will be reported separately. IMPRESSION: 1. No pulmonary emboli identified. 2. No acute intrathoracic findings. ACT 112: Negative or not required by law. Electronically signed by: David Vazquez M.D. 09/17/2022 7:48 AM
--- NOTE | 2022-09-17 07:56 | CT Scan Report ---
CT SCAN OF THE ABDOMEN AND PELVIS WITH IV CONTRAST CLINICAL HISTORY: Right upper quadrant abdominal pain. Elevated hepatic transaminases. COMPARISON STUDY: Abdominal CT dated 11/03/2021. TECHNIQUE: Following the IV administration of 113 cc of Optiray 320, CT scan of the abdomen and pelv is is performed from the lung bases to the proximal femora. Images are reviewed in the axial, sagitta l, and coronal planes. IV contrast was administered without complication. A dose lowering technique w as utilized adhering to the principles of ALARA. FINDINGS: Lung bases: The heart is top normal in size and without pericardial effusion. The lung bases are johnny r noting bibasilar atelectasis. There is a small hiatal hernia. Liver: The contrast-enhanced liver is mildly enlarged measuring over 18 cm in length. The liver demon strates diminished attenuation suggesting mild steatosis. There is no intrahepatic biliary ductal dil atation. The hepatic veins and portal veins are patent. Gallbladder: The gallbladder is distended, and the gallbladder wall is thickened and edematous. There is mild surrounding infiltration. Findings are highly suspicious for acute cholecystitis. Spleen: Normal in size and attenuation. Pancreas: Unremarkable. Adrenal glands: Unremarkable. Kidneys: The contrast enhanced kidneys are normal in size and without hydronephrosis. The kidneys enh ance symmetrically. Abdominal vasculature: The abdominal aorta is normal in course and caliber noting scattered foci of a therosclerotic calcification. Bowel: There is mild to moderate colonic fecal retention. No bowel obstruction is seen. The appendix is well-visualized and normal. Peritoneum: There is no intraperitoneal free air or abdominal ascites. There is a large complex fat-c ontaining hernia in the periumbilical soft tissues and pelvis. Lymphadenopathy: None. Pelvic viscera: The bladder is normal as visualized. The uterus is surgically absent. No adnexal lesi on is seen. Skeletal structures: There is mild lumbosacral spondylosis. No lytic or blastic lesions are seen. IMPRESSION: 1. Findings are highly suspicious for acute cholecystitis. Clinical/laboratory correlation will be re quired and surgical consultation is advised. 2. The liver is mildly enlarged and steatotic. 3. Large complex fat-containing ventral hernia. 4. Additional findings as above. ACT 112: Negative or not required by law. Electronically signed by: Jay Acosta M.D. 09/17/2022 7:54 AM
--- NOTE | 2022-09-17 08:08 | Hospitalist Progress Note ---
Date of Service September 17, 2022 Assessment & Plan (1) Acute cholecystitis: (2) Hypokalemia: (3) Diabetes: (4) Osteoarthritis of knees, bilateral: (5) Hyperlipidemia: (6) High frequency hearing loss of both ears: (7) Ovarian mass: (8) IgA deficiency: (9) Gastritis: (10) Irritable bowel syndrome with constipation: (11) Metabolic syndrome: (12) Hypertension: (13) Asthma: (14) GERD (gastroesophageal reflux disease): (15) Sleep apnea: Plan Acute cholecystitis- In the emergency department, patient received the following: K rider 10 mEq x 1, NSS x1 L, Cipro 400 mg IV, Flagyl 500 mg IV, Zofran 4 mg IV, morphine sulfate 4 mg IV As noted on CT scan of abdomen pelvis without contrast NPO Cipro 400 mg IV every 12 hours Flagyl 500 mg IV every 8 hours Of note, patient is allergic to penicillins Zofran 4 mg IV every 6 hours as needed Pantoprazole 40 mg IV daily NSS + KCl 20 mEq at 100 mils per hour MRCP ordered to further assess Consult GI if abnormal MRCP General surgery consult Dr. Daniel Pearson Asthma- Continue usual inhalers: Albuterol sulfate 2 puffs every 6 hours as needed, DuoNebs 4 times daily as needed Diabetes mellitus- Hold Tirzepatide, and metformin Place on Accu-Cheks 4 times daily/every 6 hours, with NovoLog coverage per SSI Hypertension- Hold losartan/HCTZ Hypokalemia- Potassium 2.9 on admission Likely secondary to HCTZ use and not eating due to N/V Given K rider 10 mEq x [address] on NSS + KCl 20 mEq at 100 mils per hour Follow laboratories BMP and magnesium levels serially Gastric dysmotility/IBS-C- Hold linaclotide GERD/Gastritits- Changing pantoprazole from PO to IV B-12 Deficiency- Resume 1000mcg daily supplement post surgery Admission and Anticipated Discharge Date Admission Date: September 17, 2022 Results & Data Results & Data ([facility]) Vital Signs (Past 12 Hours) Vital Signs Temp Pulse Pulse Pulse Resp BP BP 09/17/22 07:52 36.7 C 85 16 119/71 09/17/22 03:01 36.7 C 92 H 16 152/74 H 09/17/22 02:34 94 H 18 126/79 09/17/22 00:00 85 20 134/78 09/16/22 22:09 36.7 C 103 H 18 157/88 H Pulse Ox O2 Del Method 09/17/22 07:52 93 Room Air 09/17/22 03:01 95 Room Air 09/17/22 02:34 98 Room Air 09/17/22 00:00 95 09/16/22 22:09 97 Room Air PG Care Time/CCT Total # of Minutes Spent Total Time Spent with Patient: Total time spent is greater than 50% in coordination of care (as documented) at patient's floor/unit and/or counseling patient: Coding Level of Care Code None Diagnoses Acute cholecystitis K81.0 Hypokalemia E87.6 Diabetes E11.9 Osteoarthritis of knees, bilateral M17.0 Hyperlipidemia E78.5 High frequency hearing loss of both ears H91.93 Ovarian mass N83.8 IgA deficiency D80.2 Gastritis K29.70 Irritable bowel syndrome with constipation K58.1 Metabolic syndrome E88.81 Hypertension I10 Hypertension type: essential hypertension Asthma J45.40 Asthma complication type: uncomplicated Asthma persistence: persistent Asthma severity: moderate GERD (gastroesophageal reflux disease) K21.9 Sleep apnea G47.30 (1) Hypertension Hypertension type: essential hypertension Qualified Code(s): I10 - Essential (primary) hypertension (2) Asthma Asthma complication type: uncomplicated Asthma persistence: persistent Asthma severity: moderate Qualified Code(s): J45.40 - Moderate persistent asthma, uncomplicated
--- NOTE | 2022-09-17 08:58 | Communication Note ---
Date of Service: September 17, 2022 Received consult for ERCP needs for this patient. Discussed with [facility] since [facility] does not have biliary services. Unfortunately, [facility] does not have biliary coverage available for the remainder of this week so [facility] has advised transferring patient for ERCP due to CBD stone. I did contact the hospitalist with this information.
[2022-09-17] MEDS ORDERED: metroNIDAZOLE 500 MG/100 ML BAG IV SCH (10:00)
[2022-09-17 10:24] LABS: Estimated Average Glucose 105 mg/dl; Hemoglobin A1C 5.3 % (4.5-5.6)
[2022-09-17] MEDS ORDERED: PANTOprazole 40 MG in SYRINGE 0 ML IV SCH (11:00)
--- NOTE | 2022-09-17 12:49 | Discharge Summary ---
Discharge Summary Date of Service September 17, 2022 Admission HPI Per Admitting Provider The patient is a 57 yo female with PMH including HTN, DM, GERD, gastritis, B/L knee OA, resected ovarian mass, IgA deficiency, IBS-C, Metabolic Syndrome, Asthma, SAVANNAH and obesity. She presents with symptoms as noted above. Significant abnormal laboratories: WBC 12.53, platelets 550, potassium 2.9,, glucose 122, T. bilirubin 3.1, AST 370, ALT 497, ALP 274. Hepatitis screen pending. COVID-19, flu, and RSV all negative. CT A/P shows acute cholecystitis Admission Exam Per Admitting Provider The patient is awake, alert and oriented 3, well developed and well nourished, normocephalic and atraumatic, lying in bed and in intermittent distress due to abdominal pain HEENT--PERRL, EOMI, mucous membranes and oropharynx dry. Neck--supple. No JVD. No bruits. Thyroid normal, trachea midline, no adenopathy. Heart--normal S1 and S2. No murmurs, rubs or gallops. Lungs--clear bilaterally, no respiratory distress, no accessory muscle use. Abdomen--normal bowel sounds and soft. Tender RUQ/epigstrium. Nondistended Extremities--no cyanosis or clubbing. No edema. Dermatologic--normal skin turgor, normal color, no abnormal lymph nodes, no rash. Neurologic--cranial nerves II through XII grossly intact. Rheumatologic--normal range of motion. Psychiatric--normal affect. Principal Dx & Hospital Course #1 = Principal Diagnosis (1) Acute cholecystitis: Acute cholecystitis- Presented with abdominal pain. Cholecystitis noted on CTAP with IV contrast, with confirmed 3mm CBD stone on MRCP. Started on cipro/Flagyl (penicillin allergy). NPO with IVF, IV pain medications, and IV zofran. No interventional GI at [facility] this week. Patient accepted for transfer by Dr. Jann Avery to [facility] for ERCP. Asthma: Continue usual inhalers: Albuterol sulfate 2 puffs every 6 hours as needed, DuoNebs 4 times daily as needed. Diabetes mellitus: Hold home agents and transition to basal bolus insulin. Hypertension: Hold losartan/HCTZ. Hypokalemia: Potassium 2.9 on admission -> repleted, no repeat collected prior to transfer. Likely secondary to HCTZ use and not eating due to N/V. Gastric dysmotility/IBS-C: Hold linaclotide. GERD/Gastritits: Pantoprazole transitioned to IV while NPO (2) Hypokalemia: (3) Diabetes: (4) Osteoarthritis of knees, bilateral: (5) Hyperlipidemia: (6) High frequency hearing loss of both ears: (7) Ovarian mass: (8) IgA deficiency: (9) Gastritis: (10) Irritable bowel syndrome with constipation: (11) Metabolic syndrome: (12) Hypertension: (13) Asthma: (14) GERD (gastroesophageal reflux disease): (15) Sleep apnea: Discharge Exam Constitutional WD/WN, vitals as above Respiratory normal respiratory effort, lungs clear to auscultation Cardiovascular RRR, no murmur, no edema Gastrointestinal (Abdomen) abdomen soft, mild RUQ tender no rebound or guarding Psychiatric A+Ox3, euthymic affect Updated Medication List Medication Instructions Recorded Confirmed Type inhalational spacing device #1 ea 06/28/19 08/24/22 Rx (LiteAire MDI Chamber) ipratropium 0.5 mg-albuterol 3 mg 3 ml inhalation QID PRN history of 07/24/20 08/24/22 Rx (2.5 mg base)/3 mL nebulization acute bronchitis with bronchospasm soln #1 mL diclofenac sodium 75 mg 75 mg PO QAM 07/11/21 08/24/22 History tablet,delayed release clobetasol 0.05 % topical ointment See Rx Instructions topical 09/03/21 08/24/22 Rx .COMPLEX PRN lichen Sclerosus et atrophicus #30 grams mecobalamin (vitamin B12) 1,000 1,000 mcg sublingual DAILY #30 tabs 02/02/22 08/24/22 Rx mcg disintegrating tablet,sublingual valacyclovir 500 mg tablet 500 mg PO BID PRN outbreak #6 tabs 04/06/22 08/24/22 Rx (Valtrex) albuterol sulfate 90 mcg/actuation 1 inh inhalation Q6H PRN shortness 06/11/22 08/24/22 Rx aerosol inhaler (Ventolin HFA) of breath or wheezing #18 grams losartan 50 mg-hydrochlorothiazide See Rx Instructions .Route 07/23/22 08/24/22 Rx 12.5 mg tablet .COMPLEX #90 tabs linaclotide 72 mcg capsule 72 mcg PO DAILY #30 caps 07/28/22 08/24/22 Rx (Linzess) tirzepatide 5 mg/0.5 mL 5 mg (0.5 mL) subcut Q7D #2 mL 08/24/22 08/24/22 Rx subcutaneous pen injector (Mounjaro) metformin 500 mg tablet 500 mg PO BID #180 tabs 09/16/22 09/16/22 Rx pantoprazole 40 mg tablet,delayed 40 mg PO DAILY #30 tabs 09/16/22 Rx release Hospital Stay Data Consultations 09/17/22 01:02 Consult General Surgery Routine 09/17/22 01:27 ED Decision to Admit Stat 09/17/22 05:46 Consult Gastroenterology Routine Diagnostic Imagining Performed 09/16/22 23:50 CT abd pelvis IV con only Stat 09/16/22 23:53 CT angio chest PE protocol Stat 09/17/22 01:34 MR MRCP Stat Pending Results Patient Have Any Pending Studies at Discharge: No Discharge Instructions Given to Patient (Per Discharging Provider) Acute cholecystitis- In the emergency department, patient received the following: K rider 10 mEq x 1, NSS x1 L, Cipro 400 mg IV, Flagyl 500 mg IV, Zofran 4 mg IV, morphine sulfate 4 mg IV Cholecystitis noted on CTAP with IV contrast MRCP with 3mm CBD stone NPO with IVF Cipro 400 mg IV every 12 hours, Flagyl 500 mg IV every 8 hours. Of note, patient is allergic to penicillins Zofran 4 mg IV every 6 hours as needed Pantoprazole 40 mg IV daily Interventional GI not available at [facility] this week, accepted for transfer to [facility] by Dr. Jann Avery Asthma- Continue usual inhalers: Albuterol sulfate 2 puffs every 6 hours as needed, DuoNebs 4 times daily as needed Diabetes mellitus- Hold Tirzepatide, and metformin Place on Accu-Cheks 4 times daily/every 6 hours, with NovoLog coverage per SSI Hypertension- Hold losartan/HCTZ Hypokalemia- Potassium 2.9 on admission Likely secondary to HCTZ use and not eating due to N/V Follow laboratories BMP and magnesium levels serially Did receive IV repletion here Gastric dysmotility/IBS-C- Hold linaclotide GERD/Gastritits- Changing pantoprazole from PO to IV B-12 Deficiency- Resume 1000mcg daily supplement post surgery Total Time Total Time Spent Total Time Spent (In Minutes): 50 minutes Coding Level of Care Code HOSP INP/OBS DISCH >30 MIN Diagnoses Acute cholecystitis K81.0 Hypokalemia E87.6 Diabetes E11.9 Osteoarthritis of knees, bilateral M17.0 Hyperlipidemia E78.5 High frequency hearing loss of both ears H91.93 Ovarian mass N83.8 IgA deficiency D80.2 Gastritis K29.70 Irritable bowel syndrome with constipation K58.1 Metabolic syndrome E88.81 Hypertension I10 Hypertension type: essential hypertension Asthma J45.40 Asthma complication type: uncomplicated Asthma persistence: persistent Asthma severity: moderate GERD (gastroesophageal reflux disease) K21.9 Sleep apnea G47.30
[2022-09-17] MEDS ORDERED: CIPROFLOXACIN / D5W 400 MG/200 ML BAG IV SCH (14:00)
--- NOTE | 2022-09-18 05:02 | Electrocardiogram Report ---
Test Reason : Blood Pressure : / mmHG Vent. Rate : 092 BPM Atrial Rate : 092 BPM P-R Int : 158 ms QRS Dur : 084 ms QT Int : 364 ms P-R-T Axes : 064 062 036 degrees QTc Int : 450 ms Normal sinus rhythm Possible Left atrial enlargement Borderline ECG When compared with ECG of 14-SEP-2009 20:21, No significant change was found Confirmed by George Stern ([id number]) on 09/18/2022 5:01:53 AM Referred By: REFERRED SELF Confirmed By:George Stern
[2022-09-18 11:57] LABS: HBSAG NON-REACTIVE (NON-REACTIVE); Hepatitis A Antibody IgM NON-REACTIVE (NON-REACTIVE); Hepatitis B Core Antibody IgM NON-REACTIVE (NON-REACTIVE)
== END 2022-09-17 16:40 | disposition short-term general hospital (02) ==
LOC: ED 22:04 → SUATTDRO 09-17 01:50 → 3N 09-17 01:50 → INTOOBSV 09-17 01:50 → 3N 09-17 02:34

== ENCOUNTER 2024-02-22 05:03 | Observation (INO) ==
--- NOTE | 2024-01-27 10:52 | PAT Medication Instructions ---
Medication Instructions Date of Service January 27, 2024 Home Medications Medication Instructions Recorded inhalational spacing device #1 ea 06/28/19 (LiteAire MDI Chamber) losartan 50 mg-hydrochlorothiazide 0.5 tab PO BID #45 tabs 09/20/23 12.5 mg tablet albuterol sulfate 90 mcg/actuation See Rx Instructions .Route 12/07/23 aerosol inhaler .COMPLEX #8.5 ea ipratropium 0.5 mg-albuterol 3 mg 3 ml inhalation QID PRN history of 01/17/24 (2.5 mg base)/3 mL nebulization acute bronchitis with bronchospasm soln #1 mL levofloxacin 500 mg tablet 500 mg PO DAILY #14 tabs 01/19/24 montelukast 10 mg tablet 10 mg PO QPM #90 tabs 01/19/24 (Singulair) promethazine-DM 6.25 mg-15 mg/5 mL 5 ml PO Q6H PRN cough #200 mL 01/19/24 oral syrup valacyclovir 500 mg tablet 500 mg PO BID PRN outbreak #6 tabs 01/19/24 (Valtrex) fluticasone 250 mcg-salmeterol 50 1 inh inhalation BID #60 ea 01/24/24 mcg/dose blistr powdr for inhalation (Wixela Inhub) diclofenac sodium 75 mg tablet,delayed release 75 mg PO BID metformin 500 mg tablet 500 mg PO BID Centrum Women 1 tab PO DAILY lactobacillus combination no.9 4 billion cell capsule (Adult 50 Plus Probiotic) 4,000 mmu cells PO DAILY losartan 50 mg-hydrochlorothiazide 12.5 mg tablet 0.5 tab PO BID albuterol sulfate 90 mcg/actuation aerosol inhaler See Rx Instructions .Route .COMPLEX famotidine 20 mg tablet (Pepcid) 20 mg PO BID PRN Acid Reflux omega 0-blu-ylf-fish oil 60 mg-90 mg-500 mg capsule (Fish Oil) 1 cap PO DAILY ipratropium 0.5 mg-albuterol 3 mg (2.5 mg base)/3 mL nebulization soln 3 ml inhalation QID PRN history of acute bronchitis with bronchospasm levofloxacin 500 mg tablet 500 mg PO DAILY montelukast 10 mg tablet (Singulair) 10 mg PO QPM promethazine-DM 6.25 mg-15 mg/5 mL oral syrup 5 ml PO Q6H PRN cough valacyclovir 500 mg tablet (Valtrex) 500 mg PO BID PRN outbreak linaclotide 72 mcg capsule (Linzess) 72 mcg PO QAM topiramate 50 mg tablet 50 mg PO QAM fluticasone 250 mcg-salmeterol 50 mcg/dose blistr powdr for inhalation (Wixela Inhub) 1 inh inhalation BID Continue as directed levofloxacin 500 mg tablet 500 mg PO DAILY ASK your surgeon for instructions diclofenac sodium 75 mg tablet,delayed release 75 mg PO BID STOP taking 2 weeks before surgery (or as soon as possible if surgery is within 2 weeks) omega 4-ysd-yed-fish oil 60 mg-90 mg-500 mg capsule (Fish Oil) 1 cap PO DAILY DO NOT take the morning of surgery metformin 500 mg tablet 500 mg PO BID Centrum Women 1 tab PO DAILY lactobacillus combination no.9 4 billion cell capsule (Adult 50 Plus Probiotic) 4,000 mmu cells PO DAILY losartan 50 mg-hydrochlorothiazide 12.5 mg tablet 0.5 tab PO BID promethazine-DM 6.25 mg-15 mg/5 mL oral syrup 5 ml PO Q6H PRN cough linaclotide 72 mcg capsule (Linzess) 72 mcg PO QAM Take morning of surgery With a small sip of water, OTHERWISE NOTHING TO EAT OR DRINK AFTER MIDNIGHT: albuterol sulfate 90 mcg/actuation aerosol inhaler See Rx Instructions .Route .COMPLEX (use if needed; please bring rescue inhaler with you to hospital day of surgery if possible) famotidine 20 mg tablet (Pepcid) 20 mg PO BID PRN Acid Reflux (if needed) ipratropium 0.5 mg-albuterol 3 mg (2.5 mg base)/3 mL nebulization soln 3 ml inhalation QID PRN history of acute bronchitis with bronchospasm (if needed) valacyclovir 500 mg tablet (Valtrex) 500 mg PO BID PRN outbreak (if needed) topiramate 50 mg tablet 50 mg PO QAM fluticasone 250 mcg-salmeterol 50 mcg/dose blistr powdr for inhalation (Wixela Inhub) 1 inh inhalation BID Take evening before surgery metformin 500 mg tablet 500 mg PO BID losartan 50 mg-hydrochlorothiazide 12.5 mg tablet 0.5 tab PO BID albuterol sulfate 90 mcg/actuation aerosol inhaler See Rx Instructions .Route .COMPLEX (if needed) famotidine 20 mg tablet (Pepcid) 20 mg PO BID PRN Acid Reflux (if needed) ipratropium 0.5 mg-albuterol 3 mg (2.5 mg base)/3 mL nebulization soln 3 ml inhalation QID PRN history of acute bronchitis with bronchospasm (if needed) montelukast 10 mg tablet (Singulair) 10 mg PO QPM promethazine-DM 6.25 mg-15 mg/5 mL oral syrup 5 ml PO Q6H PRN cough (if needed) valacyclovir 500 mg tablet (Valtrex) 500 mg PO BID PRN outbreak (if needed) fluticasone 250 mcg-salmeterol 50 mcg/dose blistr powdr for inhalation (Santos snow) 1 inh inhalation BID Other Notes If you have any questions please call us at [phone] or [phone] or [phone] or [phone]
--- NOTE | 2024-02-02 14:32 | Anesthesiology Consultation ---
Date of Service February 02, 2024 Assessment & Plan (1) Encounter for pre-operative examination: Plan - hypokalemia: PCP office made aware via phone call 02/02/24. Awaiting [place] PCP optimization response to workload note as well (patient re-started potassium and is to have repeat BMP in 1 week per PCP note). Surgeon's office made aware. - check BSG am DOS. Chart Review Chart Review: Pending: Refer to Additional Notes / Consult section and Patient seen in Pre Admission Testing Teaching & Discussion Pre-Anesthesia Teaching/Discussion Notes: Instructed NPO after midnight before surgery, except medications with 15 cc of water. Medication instructions provided according to the PAT guidelines. History Surgery Operation Date: 02/22/24 07:00 Proposed Procedures p Right Total Knee Arthroplasty - Deyvi Chahal MD Height/Weight Height: 5 ft Weight: 99.1 kg Allergies Allergy/AdvReac Type Severity Reaction Status Date / Time bee venom protein (honey bee) Allergy Severe Difficulty Verified 01/24/24 15:32 Breathing losartan Allergy Severe Myalgia Verified 01/24/24 15:32 peach Allergy Severe LIPS SWELL Verified 01/24/24 15:32 Penicillins Allergy Intermediate rash Verified 01/24/24 15:32 Medications Home Medications Medication Instructions Recorded Confirmed Last Taken inhalational spacing device #1 ea 06/28/19 01/24/24 Unknown (LiteAire MDI Chamber) diclofenac sodium 75 mg 75 mg PO BID 07/11/21 01/24/24 03/21/23 tablet,delayed release metformin 500 mg tablet 500 mg PO BID 09/15/23 01/24/24 Unknown multivitamin-ferrous 1 tab PO DAILY 09/15/23 01/24/24 Unknown fumarate-folic acid 18 mg-400 mcg tablet (Centrum Women) lactobacillus combination no.9 4 4,000 mmu cells PO DAILY 09/20/23 01/24/24 Unknown billion cell capsule (Adult 50 Plus Probiotic) losartan 50 mg-hydrochlorothiazide 0.5 tab PO BID #45 tabs 09/20/23 01/24/24 Unknown 12.5 mg tablet albuterol sulfate 90 mcg/actuation See Rx Instructions .Route 12/07/23 01/24/24 Unknown aerosol inhaler .COMPLEX #8.5 ea famotidine 20 mg tablet (Pepcid) 20 mg PO BID PRN Acid Reflux 12/15/23 01/24/24 Unknown omega 3-rtn-bfr-fish oil 60 mg-90 1 cap PO DAILY 01/12/24 01/24/24 Unknown mg-500 mg capsule (Fish Oil) ipratropium 0.5 mg-albuterol 3 mg 3 ml inhalation QID PRN history of 01/17/24 01/24/24 Unknown (2.5 mg base)/3 mL nebulization acute bronchitis with bronchospasm soln #1 mL montelukast 10 mg tablet 10 mg PO QPM #90 tabs 01/19/24 01/24/24 Unknown (Singulair) promethazine-DM 6.25 mg-15 mg/5 mL 5 ml PO Q6H PRN cough #200 mL 01/19/24 01/24/24 Unknown oral syrup valacyclovir 500 mg tablet 500 mg PO BID PRN outbreak #6 tabs 01/19/24 01/24/24 Unknown (Valtrex) linaclotide 72 mcg capsule 72 mcg PO QAM 01/20/24 01/24/24 Unknown (Linzess) topiramate 50 mg tablet 50 mg PO QAM 01/20/24 01/24/24 Unknown fluticasone 250 mcg-salmeterol 50 1 inh inhalation BID #60 ea 01/24/24 Unknown mcg/dose blistr powdr for inhalation (Wixela Inhub) potassium chloride 10 mEq 20 meq (2 x 10 mEq) PO DAILY #180 02/02/24 Unknown capsule,extended release caps Past Medical History Medical History (Updated 02/02/24 @ 14:41 by Angela Morel PA-C) Asthma using nebs/inh daily, > bad with spring allergies right now History of COVID-19 (~2022) 07/2020 + 05/2022>brain fog cont. + 2022-symptoms resolved Hx of migraines Hypertension controlled, stable per pt IBS (irritable bowel syndrome) Ovarian mass hx of > benign removed with hyster > was 30lb Pre-diabetes on metformin Patient denies h/o stroke, seizures, heart attack, heart failure, blood clots/DVTs or blood transfusions. Exercise / Class Metabolic Activity III < 4 Walking/Shop/Light housework (denies chest discomfort or shortness of breath with usual activities, less than 5 steps in home) Past Family History Family History Grandmother (Maternal) Breast cancer Father Diabetes Coronary heart disease Heart disease Pure hypercholesterolemia Myocardial infarction FH: coronary artery bypass surgery Hypertension Stroke Mother Diabetes Supraventricular tachycardia Hypertension Obesity Grandfather Heart disease Stroke Other No family history of adverse response to anesthesia Ulcerative colitis Denies family history of Colon cancer Ovarian cancer Prostate cancer Colorectal cancer Past Surgical History Surgical History (Updated 02/02/24 @ 14:41 by Angela Morel PA-C) History of anesthesia reaction slow to wake up History of section x1 History of cholecystectomy History of colonoscopy (06/2021) History of esophagogastroduodenoscopy (EGD) History of lumbar fusion History of tonsillectomy History of tooth extraction History of tubal ligation S/P ERCP (09/18/22) Stent, Dr. Emeli Latham S/P total abdominal hysterectomy and bilateral salpingo-oophorectomy Past Anesthesia History No Hx of Anesthesia Complications and No Family Hx of Anesthesia Complications History of PONV No Hx of Motion Sickness and History of PONV (denies needing scop patch) Social History Smoking Status: Former smoker tobacco type: cigarettes Do You Dip or Chew Tobacco: No Smoking End Date: 26 yrs Hx Alcohol Use: No Alcohol type: beer and hard liquor alcohol intake frequency: a few times a month Hx Substance Use: No substance use type: does not use Review of Systems Patient states that she completed course of levofloxacin for sinus infection- symptoms fully resolved. Patient denies chest pain, shortness of breath, dyspnea on exertion, fever, chills, cough, wheezing, or palpitations. Physical Exam Vital Signs Vitals BP 108/73 P 83 TEMP 97.9 SP02 95% on RA RESP 18 Physical Patient resting comfortably in chair in no acute distress, alert and oriented, responding appropriately throughout visit Full cervical extension range of motion without pain TMD < 3 finger breadths Mallampati Score 2 Dentition: several caps/crowns; denies chipped or loose teeth, implants or bridges Lungs: normal respiratory effort. Good air movement, clear throughout to auscultation, no adventitious breath sounds Cardiac: regular rate and rhythm, no murmurs noted Carotid arteries: negative bruit bilat Lab Results Anesthesia Preop Results Results Anesthesia Widget: WBC 9.41 K/ul (4.8-10.8) 02/02/24 Hgb 12.0 g/dl (12.0-16.0) 02/02/24 Hct 35.9 % (37.0-47.0) L 02/02/24 Plt 336 K/uL (130-400) 02/02/24 Na 140 mmol/L (136-145) 02/02/24 K 2.8 mmol/L (3.5-5.1) L 02/02/24 Cl 102 mmol/L (98-107) 02/02/24 CO2 31 mmol/L (21-32) 02/02/24 BUN 15 mg/dl (6-23) 02/02/24 Creat 0.79 mg/dl (0.6-1.2) 02/02/24 Glucose Level 105 mg/dl (70-99(Fasting)) H 02/02/24 PT 11.0 Seconds (9.0-12.0) 02/02/24 PTT 26 Seconds (21-31) 02/02/24 INR 1.0 (0.9-1.1) 02/02/24 HA1c 6.2 % (4.5-5.6) H 02/02/24 Blood Type A Positive 02/02/24 Antibody Screen NEGATIVE 02/02/24 Testing Electrocardiogram Date: 03/21/23 NSR, rate 81 bpm Low voltage QRS Chest X-Ray Date: 02/02/24 No active disease in the chest. Echocardiogram Date: 09/28/23 EF 60-65% No LV regional wall motion abnormalities Borderline cLVH No significant valvular pathology Pulmonary Function Test Date: 12/02/23 Normal spirometry. Flow-volume loops unremarkable.
[2024-02-22] MEDS: cloNIDine HCL 0.1 MG/24 HR TRANSDERM SYS TD SCH (05:57)
[2024-02-22] MEDS: dexAMETHasone**PF** 10 MG/ML VIAL IV SCH (05:57)
[2024-02-22] MEDS: traMADol HCL 50 MG TABLET PO SCH (05:57)
[2024-02-22] MEDS: CeleBREX 200 MG CAP PO SCH (05:58)
[2024-02-22] MEDS: ACETAMINOPHEN 500 MG TAB PO SCH ×2 (05:58→14:11)
[2024-02-22] MEDS: FAMOTIDINE 20 MG TAB PO SCH (05:58)
[2024-02-22] MEDS: oxyCODONE HCL 10 MG TABCR (OxyCONTIN) PO SCH (05:58)
[2024-02-22] MEDS: METOCLOPRAMIDE HCL 10 MG TABLET PO SCH (05:58)
[2024-02-22] MEDS: GABAPENTIN 600 MG DOSE PO SCH (05:58)
[2024-02-22] MEDS ORDERED: fentaNYL citrate PF 100 MCG/2 ML VIAL ONE (06:16)
[2024-02-22] MEDS ORDERED: MIDAZOLAM HCL 1 MG/ML 2ML VIAL ONE ×2 (06:16)
[2024-02-22] MEDS ORDERED: ROPIVACAINE 0.5% 5 MG/ML 30 ML VIAL ONE (06:18)
[2024-02-22] MEDS ORDERED: BUPIVACAINE 0.5 % 5 MG/1 ML PF 10ML VIAL ONE (06:19)
[2024-02-22] MEDS: LR 500ML BOLUS, THEN 15ML/HR IV SCH (06:42)
[2024-02-22] MEDS: LR 60ML/HR IV SCH (06:43)
[2024-02-22] MEDS ORDERED: ATROPINE SULFATE 0.1 MG/ML 10ML SYR IV PRN (06:45)
[2024-02-22] MEDS ORDERED: HYDROmorphone INJ 1 MG/ML SYRINGE IV PRN ×2 (06:45→10:49)
[2024-02-22] MEDS ORDERED: fentaNYL citrate PF 100 MCG/2 ML VIAL IV PRN (06:45)
[2024-02-22] MEDS ORDERED: ePHEDrine sulfate 50 MG/ML AMP IV PRN (06:45)
[2024-02-22] MEDS ORDERED: ONDANSETRON INJ 2 MG/ML 2 ML VIAL IV PRN ×2 (06:45→10:49)
--- NOTE | 2024-02-22 06:50 | History & Physical Bridge Note ---
Date of Service February 22, 2024 History & Physical Bridge Note I have examined the patient, reviewed the History & Physical and in the interval since the performance of the History & Physical I have noted the following changes of clinical significance: no changes noted
[2024-02-22] MEDS: TRANEXAMIC ACID 1,000 MG **IV Pre-op IV SCH (06:51)
[2024-02-22] MEDS: ceFAZolin 2000MG 2,000 MG/15 ML SYR IV SCH ×2 (07:07→16:33)
[2024-02-22] MEDS: ORTHO JOINT ANESTHETIC ONE (07:52)
[2024-02-22] MEDS ORDERED: LIDOCAINE 2% 2 ML VIAL/AMP(20MG/ML) INFIL ONE (08:24)
[2024-02-22] MEDS ORDERED: PROPOFOL IV EMULSION 10 MG/ML 20 ML VIAL IV ONE ×4 (08:24→09:00)
[2024-02-22] MEDS ORDERED: PHENYLEPHRINE 100MCG/ML 10ML SYR IV ONE ×2 (08:49→09:38)
[2024-02-22] MEDS: ROPIV 0.5% 246mg, Ketorolac 30mg, EPINEPHrine 0.5mg in NSS INFIL SCH (09:30)
[2024-02-22] MEDS: VANCOMYCIN HCL 1000MG/20ML VIAL ONE (09:45)
--- NOTE | 2024-02-22 10:03 | Operative Report ---
Post Operative Report Pre & Post Diagnosis Operation Date: 02/22/24 07:00 Pre-Op Diagnosis: Right Knee Degenerative Joint Disease Post-Op Diagnosis: Right Knee Degenerative Joint Disease I identified the patient and participated in the time-out.: Yes Procedure Operation Date: 02/22/24 07:00 Actual Procedures p Right Total Knee Arthroplasty(Right) - Deyvi Chahal MD Surgeon Deyvi Chahal MD Competency Evaluated Nurse Aide Gaby EMMANUEL no resident or fellow available Estimated Blood Loss 5 Findings Consistent with Post-Op Diagnosis Specimens Resected bone and soft tissue right knee Drains None Anesthesia Type MAC Spinal Regional Complications none Disposition Accompanied Patient To Recovery: No Disposition: Recovery Room Indications Brionna is 58 years old and has end-stage osteoarthritis of her right knee refractory to nonsurgical treatment. She wishes to have her knee replaced. Description of Procedure Informed consent obtained. Patient identified. She identified the operative site as the right knee. I marked my initials. A preoperative surgical timeout was performed. A preop dose of antibiotics and TXA was given. She was taken to the OR positioned supine on the table. Anesthetic administered. A padded bump under the right calf and right hip. Tourniquet on right thigh. The leg was prepped and draped in usual sterile fashion. DVT prophylaxis intraoperatively with foot pumps. Postop chemical devices early mobility and Eliquis beginning the morning after surgery. The exam under anesthesia revealed trace MCL laxity at 20 degrees knee flexion otherwise stable range of motion 0/7/100. Limb exsanguinated with the Esmarch. Tourniquet inflated 250 mmHg and later to 275 mmHg. A midline longitudinal incision was made approximately 20 cm in length followed by medial parapatellar arthrotomy. Soft tissue on the anterior aspect of the distal femur was resected. Medial release was performed off of the tibia proximally. Retropatellar fat pad resected. Synovial layer in the lateral gutter was released. Patella had grade 4 chondrosis with large osteophytes especially inferiorly. These were all removed and the Horacio patellar synovium was debrided. The patellar thickness was 21 mm. The knee was flexed. Large moderate osteophytes throughout the knee especially medially were removed including underneath the collateral ligaments. The cruciate ligaments were intact and they were resected. The tibia was subluxated. Deficient medial meniscus was noted with loss of the body of the meniscus. The medial and lateral meniscus were excised and the margins of the tibia were defined. Plating Foreman hole was drilled into the tibia just in front of and between the tibial spines. An intramedullary alignment vincent was inserted. A 3 degree tibial block was applied and aligned to the tibial tubercle and pinned into place. It was set to resect 10 mm off of the lateral side corresponding to approximately 6 mm medially. This cut was made and the patellar tendon was protected.Tibia was sized to a 4. Attention was turned to the femur. A commercial airline pilot hole was drilled into the distal femur followed by the insertion of the distal femoral cutting guide set at 11 mm thick cut because of the flexion contracture and a 5 degree right knee valgus based upon templating. This cut was made and there was a symmetric 6 mm extension gap. The epicondylar axis was marked out. The distal femoral sizing block was applied and sized to a 5. Right knee 3 degrees external rotation. Pins were inserted and the anterior down size 5 cutting block was applied. This matched the epicondylar axis. The block was pinned in the place and the cuts were made protecting the collateral ligaments. There were large osteophytes in the back the knee as well as a large loose bodies in the back of the knee multiple which were removed. There was now a symmetrical 8 mm flexion and extension gap. The box cutting guide was applied and lateralized and the box cut was made. The femoral trial was applied and the lug holes were drilled. The tibia was sized to a 4. The tibial tray was lateralized as well as the femoral component. The tibia was pinned in the place and prepared for the revision mobile-bearing tray with the drill reamer and punch. Trialing was then performed with an 8 mm spacer which showed full extension intact stability at 0 and 90 and there was trace MCL and LCL laxity at 20 degrees knee flexion. Attention was turned to the patella where the guide was set to preserve 14 mm of bone. The cut was made and preserved 13.5. The 35 patella was selected this was aligned to the knee in slight flexion with the patella and its elem position and then the locals were drilled. Patellar tracking was off at this point. The components were removed. The tibial canal was plugged. Ortho joint mix injected in the back the knee. The bony surfaces were meticulously prepared. There was a 1 cm cyst posterior medial and central which was cleared of debris and later packed with cement. There was some cartilage present on the lateral facet of the patella which was debrided leaving an intact rim and some small drill holes were made in this area. 2 bags of Simplex P cement were mixed along with 2 g total of vancomycin powder. Then while in a doughy state smears were placed on the posterior condyles and the components were then cemented in place femur tibia and patella. The knee was held in full extension with a trial spacer until the cemented hardened. At that time the tourniquet was let down after 106 minutes of inflation. Meticulous hemostasis was performed. The remainder the Ortho joint mix was injected and the soft tissues were kept moist throughout the surgical procedure and then irrigated thoroughly at the completion after component insertion. Bleeding was minimal. Trialing demonstrated the after mentioned laxity profile with the 8 mm spacer. The back the knee was inspected for cement and irrigated. The size 8 spacer was inserted. The extensor mechanism was closed above the equator the patella with interrupted #2 FiberWire. Below the equator with running and interrupted #1 Vicryl. The skin was then closed in layers with 0 and 2-0 Vicryl and jazmin on the skin. Composite patellar thickness at the conclusion of the surgery was 23 mm. The patellar tracking was fine with no hands technique once the tourniquet had been let down. Knee stable in full extension and 90 and had trace MCL and LCL laxity at 20 degrees of knee flexion. Leg was cleaned with wet and dry sponges saw sterile dressing was applied Xeroform 4 x 4's ABD soft wrap full-length Edy wrap. Knee immobilizer. Patient awakened from anesthesia taken to recovery in stable condition. The resected bone and soft tissue were sent for specimen. Counts were correct and blood loss is estimated to be 5 cc. At the conclusion the operation spoke to patient's informed of my findings and discussed postoperative and plan. The components inserted were the J&J attune knee a 5 right posterior stabilized femur a size 4 RP revision tibial baseplate 35 patella and a 5 x 8 mm RP post erior stabilized tray I attest to the content of the Intraoperative Record and any orders documented therein. Any exceptions are noted below.
--- NOTE | 2024-02-22 10:06 | Operative Report ---
Post Operative Report Pre & Post Diagnosis Operation Date: 02/22/24 07:00 Pre-Op Diagnosis: Right Knee Degenerative Joint Disease Post-Op Diagnosis: Right Knee Degenerative Joint Disease I identified the patient and participated in the time-out.: Yes Procedure Operation Date: 02/22/24 07:00 Actual Procedures p Right Total Knee Arthroplasty(Right) - Deyvi Chahal MD Surgeon Deyvi Chahal MD Advisory Internship Gaby EMMANUEL no resident or fellow available Estimated Blood Loss 5 Findings Consistent with Post-Op Diagnosis Specimens Bone and soft tissue Anesthesia Type MAC Spinal Regional Description of Procedure Patient was taken to the operating room and placed under IV sedation. She was given a spinal anesthesia with peripheral nerve block. She was given 2 g of IV Ancef for surgical prophylaxis. She was given 1 g of IV TXA preoperatively. She was prepped and draped in routine sterile fashion. Is present during the entire case and assisted with positioning, tissue retraction, implantation of hardware, trialing of implants, irrigation, closure and dressings. Please see Dr. Chahal's operative report for further detail regarding today's procedure. Patient was awakened and transferred to the recovery room in stable condition. I attest to the content of the Intraoperative Record and any orders documented therein. Any exceptions are noted below.
[2024-02-22] MEDS ORDERED: METOCLOPRAMIDE HCL INJ 5 MG/ML 2 ML VIAL IV PRN (10:49)
[2024-02-22] MEDS ORDERED: hydrALAZINE HCL 20 MG/ML VIAL IV PRN (10:49)
[2024-02-22] MEDS ORDERED: HYDROmorphone INJ 0.5 MG/0.5 ML SYR IV PRN (10:49)
[2024-02-22] MEDS ORDERED: diphenhydrAMINE 50 MG/ML VIAL IV PRN (10:49)
[2024-02-22] MEDS ORDERED: PHARMACY GLYCEMIC MGMT CONSULT PRN (10:49)
[2024-02-22] MEDS ORDERED: FAMOTIDINE 20 MG TAB PO PRN (10:49)
[2024-02-22] MEDS ORDERED: bisacodyL 10 MG SUPP PR PRN (10:49)
[2024-02-22] MEDS ORDERED: NALOXONE HCL 0.4 MG/1 ML VIAL/CARP IV PRN (10:49)
[2024-02-22] MEDS ORDERED: ALBUTEROL HFA 8 GM INHALER INH PRN (10:49)
[2024-02-22] MEDS ORDERED: ALBUT/IPRATROP 3MG/0.5MG NEB 3 ML VIAL INH PRN (10:49)
[2024-02-22] MEDS ORDERED: MAGNESIUM HYDROXIDE SUSP 30 ML UDC PO PRN (10:49)
--- NOTE | 2024-02-22 11:03 | Anesthesiology Progress Note ---
Date of Service February 22, 2024 Anesthesia Post Procedure Vital Signs Vital Signs: Temp Pulse Pulse Resp BP Pulse Ox O2 Del Method 02/22/24 10:55 36.5 C 103 H 18 112/71 95 Room Air 02/22/24 10:45 103 H 12 117/63 94 Room Air 02/22/24 10:35 36.6 C 99 H 12 104/66 95 Room Air 02/22/24 10:25 93 H 12 103/66 95 Room Air 02/22/24 10:15 103 H 12 116/64 97 Oxymask 02/22/24 10:06 36.1 C L 109 H 16 117/68 99 Oxymask 02/22/24 05:44 36.9 C 95 H 20 130/77 97 Room Air O2 Flow Rate 02/22/24 10:55 02/22/24 10:45 02/22/24 10:35 02/22/24 10:25 02/22/24 10:15 4 02/22/24 10:06 4 02/22/24 05:44 Transfer of Care Handoff Completed per policy Notes Mental Status: alert / awake / arousable and participated in evaluation Patient Amnestic to Procedure: Yes Nausea / Vomiting: adequately controlled Pain: adequately controlled Airway Patency, RR, SpO2: stable & adequate BP & HR: stable & adequate Hydration State: stable & adequate Neuraxial Anesthesia: was administered and sensory block is resolving Anesthetic Complications: no major complications apparent and Pt Satisfied with anesthetic care
[2024-02-22] MEDS: SODIUM CHLORIDE 0.9% 1,000 ML IV SCH (11:10)
--- NOTE | 2024-02-22 11:12 | XRay Report ---
XR knee RT 1 or 2V routine CLINICAL HISTORY: Surgical Post Op TECHNIQUE: 2 views of the right knee were obtained. Comparison: Comparison is made to leg length radiograph 02/02/2024 FINDINGS: Patient is status post total knee arthroplasty with expected postsurgical changes including soft tiss ue swelling and subcutaneous emphysema. No periarticular lucency or hardware fracture is seen. IMPRESSION: Expected postoperative appearance status post placement of total knee arthroplasty. ACT 112: Negative or not required by law. Electronically signed by: Clayton Phillips M.D. 02/22/2024 11:11 AM
[2024-02-22] MEDS ORDERED: CARBOHYDRATES FOR HYPOGLYCEMIA PO PRN (11:30)
[2024-02-22] MEDS ORDERED: GLUCOSE 10 TAB/TUBE PO PRN (11:30)
[2024-02-22] MEDS ORDERED: DEXTROSE 50% 50 ML SYRINGE IV PRN (11:30)
[2024-02-22] MEDS ORDERED: GLUCOSE 40% GEL 15 GM TUBE PO PRN (11:30)
[2024-02-22] MEDS ORDERED: GLUCAGON FOR INJ 1 MG VIAL IM PRN (11:30)
--- NOTE | 2024-02-22 11:30 | Pharmacy Report ---
Pharmacy Glycemic Short Note 2 - Date of Service February 22, 2024 - Glycemic Short BSG Results (Last 24 hours): 02/22/24 02/22/24 05:40 10:12 POC Glucose 103 H 143 H OUTPATIENT ANTIDIABETIC REGIMEN: * Metformin 500 mg PO BIDM HbA1c: 6.2% (02/02/24) ASSESSMENT: * DD is a 58 year old female POD #0 s/p right total knee arthroplasty * Received 10 mg IV dexamethasone in OR, ordered 8 mg PO x 1 * Preop blood sugar of 103 mg/dL and postop blood sugar of 143 mg/dL * Very well-controlled diabetes as an outpatient on metformin only * Will be conservative with initial insulin regimen despite steroid admin. PLAN FOR INPATIENT GLYCEMIC CONTROL: * Hold outpatient oral diabetes medications * Basal insulin * Lantus 10 units SC x 1 * Bolus insulin * NovoLog per scale ACHS or Q6hrs while NPO * Goal Range: Low 110 mg/dL - High 140 mg/dL * Correction Factor: 25 mg/dL/unit * Nutritional / Prandial insulin per carb ratio of 1 unit per 8 grams CHO consumed
[2024-02-22] MEDS: CHECK CLONIDINE PATCH PLACEMENT SCH (11:41)
[2024-02-22] MEDS: LANTUS PER UNIT CHARGE SC ONE (12:09)
[2024-02-22] MEDS: INSULIN ASPART PER UNIT CHARGE SC SCH (12:09)
[2024-02-22] MEDS: oxyCODONE HCL IR 5 MG TAB (IMMEDIATE RELEASE) PO PRN (13:04)
[2024-02-22] MEDS: TRANEXAMIC ACID / 0.7% NACL 1,000 MG/100 ML BAG IV SCH (15:58)
--- NOTE | 2024-02-22 16:41 | Orthopedic Progress Note ---
Date of Service February 22, 2024 Assessment & Plan (1) Degenerative joint disease of knee, right: Plan: Postop day 0-status post right total knee arthroplasty with Dr. Chahal Home medications have been continued. Finish out IV Ancef. She may be out of bed, weight-bear as tolerated with the knee immobilizer and a walker. PT and OT to start tomorrow morning. DUTCH stockings, AV impulse boots and Eliquis 2.5 mg p.o. twice daily to start tomorrow for DVT prophylaxis. Regular diet has been ordered. Encouraged ice and elevation. Will discuss x-rays with her tomorrow morning. X-ray showed normal expected findings post total knee arthroplasty. Case management for disposition needs. Plan for discharge to home health tomorrow. Will discuss findings with Dr. Chahal. Will reeval in AM. Admission and Anticipated Discharge Date Admission Date: February 22, 2024 Subjective Patient is sitting up in chair. Doing well. No complaints of significant pain in her right lower extremity. She does have some mild groin and upper thigh discomfort. She is tolerating a regular diet. Denies any postoperative nausea or vomiting. Denies any numbness or tingling in her right lower extremity. Physical Exam Musculoskeletal: Exam of her right lower extremity: Postoperative dressings are clean, dry and intact. Knee immobilizer in place. Her leg is elevated on a stool in 2 pillows. She has full motor function and sensation to the right foot. Dorsalis pedis pulses 1+. Foot is warm. Capillary fill is brisk. Her left thigh-high Dutch was adjusted due to some irritation in the inner groin of the left leg. She tolerates logrolling of bilateral hips. Results & Data Vital Signs (Past 12 Hours) Vital Signs Temp Pulse Pulse Resp BP Pulse Ox O2 Del Method 02/22/24 13:54 36.5 C 102 H 16 126/77 92 Room Air 02/22/24 13:00 36.6 C 113 H 18 119/69 96 Room Air 02/22/24 12:04 36.5 C 103 H 16 115/71 95 Room Air 02/22/24 11:25 36.5 C 103 H 18 119/75 95 Room Air 02/22/24 10:55 36.5 C 103 H 18 112/71 95 Room Air 02/22/24 10:45 103 H 12 117/63 94 Room Air 02/22/24 10:35 36.6 C 99 H 12 104/66 95 Room Air 02/22/24 10:25 93 H 12 103/66 95 Room Air 02/22/24 10:15 103 H 12 116/64 97 Oxymask 02/22/24 10:06 36.1 C L 109 H 16 117/68 99 Oxymask 02/22/24 05:44 36.9 C 95 H 20 130/77 97 Room Air O2 Flow Rate 02/22/24 13:54 02/22/24 13:00 02/22/24 12:04 02/22/24 11:25 02/22/24 10:55 02/22/24 10:45 02/22/24 10:35 02/22/24 10:25 02/22/24 10:15 4 02/22/24 10:06 4 02/22/24 05:44 Diagnostic Findings XR knee RT 1 or 2V routine CLINICAL HISTORY: Surgical Post Op TECHNIQUE: 2 views of the right knee were obtained. Comparison: Comparison is made to leg length radiograph 02/02/2024 FINDINGS: Patient is status post total knee arthroplasty with expected postsurgical changes including soft tissue swelling and subcutaneous emphysema. No periarticular lucency or hardware fracture is seen. IMPRESSION: Expected postoperative appearance status post placement of total knee arthroplasty.
[2024-02-22] MEDS: traMADol HCL 50 MG TABLET PO PRN (18:02)
[2024-02-22] MEDS: MONTELUKAST SODIUM 10 MG TABLET PO SCH (20:05)
[2024-02-22] MEDS: SENNA 8.6 MG TAB PO SCH (20:05)
[2024-02-22] MEDS: DOCUSATE SODIUM 100 MG CAP PO SCH (20:06)
[2024-02-22] MEDS: LOSARTAN/HCTZ 50/12.5MG TAB PO SCH (20:06)
[2024-02-22] MEDS ORDERED: APIXABAN 2.5 MG TAB PO SCH (21:00)
[2024-02-23 06:29] LABS: Hemoglobin 10.2 g/dl (12.0-16.0); Mean Corpuscular Hemoglobin 27.6 pg (25.0-34.0); Mean Corpuscular Hgb Conc 32.9 g/dL (32.0-36.0); Mean Corpuscular Volume 83.8 fL (80.0-100.0); Mean Platelet Volume 10.2 fL (9.4-12.4); Platelet Count 304 K/uL (130-400); RDW Coefficient of Variation 14.2 % (11.5-14.5); RDW Standard Deviation 43.6 fL (36.4-46.3); White Blood Count 11.64 K/ul (4.8-10.8)
[2024-02-23 06:43] LABS: BUN Creatinine Ratio 17.4 (10-20); Calcium 8.7 mg/dl (8.6-10.3); Creatinine Clr Calc Pharmacy 90.5 ml/min; Est GFR (African American) 109.7 ml/min; Est GFR (Non-African American) 94.6 ml/min; Potassium 2.8 mmol/L (3.5-5.1)
[2024-02-23] MEDS: APIXABAN 2.5 MG TAB PO SCH (08:24)
[2024-02-23] MEDS: TOPIRAMATE 50 MG TAB PO SCH (08:24)
[2024-02-23] MEDS: POTASSIUM CHLORIDE CRTAB 20 MEQ TABCR PO SCH ×2 (08:25→20:17)
[2024-02-23] MEDS: dexAMETHasone 4 MG TAB PO SCH (08:25)
[2024-02-23] MEDS: CEROVITE ADV FORMULA TAB PO SCH (08:25)
[2024-02-23] MEDS: ADVANCED PROBIOTIC 625 MG CAPSULE PO SCH (08:25)
[2024-02-23] MEDS: linaCLOtide 72 MCG CAPSULE PO SCH (08:25)
[2024-02-23] MEDS: FLUTICASONE/VILANTEROL 200/25MCG 14 PUFFS/INHALER INH SCH (08:26)
[2024-02-23] MEDS: LANTUS PER UNIT CHARGE SC ONE (08:30)
[2024-02-23] MEDS ORDERED: MULTIVITAMIN TAB PO SCH (09:00)
--- NOTE | 2024-02-23 10:42 | Orthopedic Progress Note ---
Date of Service February 23, 2024 Assessment & Plan (1) Degenerative joint disease of knee, right: Plan: Postop day 1-status post right total knee arthroplasty with Dr. Chahal Home medications have been continued. She may be out of bed, weight-bear as tolerated with the knee immobilizer and a walker. PT and OT LISA stockings, AV impulse boots and Eliquis 2.5 mg p.o. twice daily to start tomorrow for DVT prophylaxis. Regular diet has been ordered. Encouraged ice and elevation. Case management for disposition needs. Plan for home with home health tomorrow. Due to her being very tired and worn out and her hypokalemia we will recommend staying overnight for observation. Will plan to place in a Prevena wound VAC tomorrow at time of dressing change. Dr. Chahal present for today's visit. (2) Hypokalemia: Plan: Due to her hypokalemia we will increase her potassium to 20 mEq twice daily. Will plan to repeat her PRP in the morning. Will continue to follow. If necessary will discuss with outpatient family physician or inpatient hospitalist. Patient understands and agrees to the plan. Admission and Anticipated Discharge Date Admission Date: February 22, 2024 Anticipated date of discharge: 02/24/24 Subjective Patient lying in bed, had PT and OT this morning. States that she did well out of bed, but when in the bathroom, she became sweating and felt like she was going to pass out. She was placed back into bed. BP was mildly low. She feels better now and did not completely pass out. She is tired and would like to rest and "get some sleep". She denies any chest pain, shortness of breath, nausea or vomiting. She denies any current dizziness or lightheadedness. Physical Exam Musculoskeletal: Exam of her right lower extremity: Her postoperative dressings are clean, dry and intact. She has full ankle range of motion and normal strength. Distal pulses are 1+. Foot is warm. Ice is placed over the anterior aspect of her knee. Her leg was elevated on 3 blankets. Results & Data Vital Signs (Past 12 Hours) Vital Signs Temp Pulse Resp BP Pulse Ox O2 Del Method 02/23/24 09:46 78 96/61 L 02/23/24 09:46 78 94/66 L 98 Room Air 02/23/24 07:41 36.8 C 77 16 102/62 96 Room Air 02/23/24 02:54 36.7 C 83 16 109/67 95 Room Air 02/22/24 23:05 36.5 C 77 16 124/68 95 Room Air Laboratory Results 02/23/24 02/23/24 02/22/24 Range/Units 07:31 05:59 20:29 WBC 11.64 H (4.8-10.8) K/ul RBC 3.70 L (4.20-5.40) M/uL Hgb 10.2 L (12.0-16.0) g/dl Hct 31.0 L (37.0-47.0) % MCV 83.8 (80.0-100.0) fL MCH 27.6 (25.0-34.0) pg MCHC 32.9 (32.0-36.0) g/dL RDW Std Deviation 43.6 (36.4-46.3) fL RDW Coeff of Lele 14.2 (11.5-14.5) % Plt Count 304 (130-400) K/uL MPV 10.2 (9.4-12.4) fL Sodium 140 (136-145) mmol/L Potassium 2.8 L (3.5-5.1) mmol/L Chloride 105 (98-107) mmol/L Carbon Dioxide 28 (21-32) mmol/L Anion Gap 7 (3-11) BUN 12 (6-23) mg/dl Creatinine 0.69 (0.6-1.2) mg/dl Est Cr Clr Drug Dosing 90.5 ml/min Est GFR ( Amer) 109.7 ml/min Est GFR (Non-Af Amer) 94.6 ml/min BUN/Creatinine Ratio 17.4 (10-20) Glucose 109 H (70-99(Fasting)) mg/dl POC Glucose 97 124 H (70-99) mg/dl Calcium 8.7 (8.6-10.3) mg/dl 02/22/24 02/22/24 Range/Units 16:20 11:37 WBC (4.8-10.8) K/ul RBC (4.20-5.40) M/uL Hgb (12.0-16.0) g/dl Hct (37.0-47.0) % MCV (80.0-100.0) fL MCH (25.0-34.0) pg MCHC (32.0-36.0) g/dL RDW Std Deviation (36.4-46.3) fL RDW Coeff of Lele (11.5-14.5) % Plt Count (130-400) K/uL MPV (9.4-12.4) fL Sodium (136-145) mmol/L Potassium (3.5-5.1) mmol/L Chloride (98-107) mmol/L Carbon Dioxide (21-32) mmol/L Anion Gap (3-11) BUN (6-23) mg/dl Creatinine (0.6-1.2) mg/dl Est Cr Clr Drug Dosing ml/min Est GFR ( Amer) ml/min Est GFR (Non-Af Amer) ml/min BUN/Creatinine Ratio (10-20) Glucose (70-99(Fasting)) mg/dl POC Glucose 119 H 163 H (70-99) mg/dl Calcium (8.6-10.3) mg/dl 02/23/24 02/23/24 02/22/24 Range/Units 07:31 05:59 20:29 WBC 11.64 H (4.8-10.8) K/ul RBC 3.70 L (4.20-5.40) M/uL Hgb 10.2 L (12.0-16.0) g/dl Hct 31.0 L (37.0-47.0) % MCV 83.8 (80.0-100.0) fL MCH 27.6 (25.0-34.0) pg MCHC 32.9 (32.0-36.0) g/dL RDW Std Deviation 43.6 (36.4-46.3) fL RDW Coeff of Lele 14.2 (11.5-14.5) % Plt Count 304 (130-400) K/uL MPV 10.2 (9.4-12.4) fL Sodium 140 (136-145) mmol/L Potassium 2.8 L (3.5-5.1) mmol/L Chloride 105 (98-107) mmol/L Carbon Dioxide 28 (21-32) mmol/L Anion Gap 7 (3-11) BUN 12 (6-23) mg/dl Creatinine 0.69 (0.6-1.2) mg/dl Est Cr Clr Drug Dosing 90.5 ml/min Est GFR ( Amer) 109.7 ml/min Est GFR (Non-Af Amer) 94.6 ml/min BUN/Creatinine Ratio 17.4 (10-20) Glucose 109 H (70-99(Fasting)) mg/dl POC Glucose 97 124 H (70-99) mg/dl Calcium 8.7 (8.6-10.3) mg/dl 02/22/24 02/22/24 Range/Units 16:20 11:37 WBC (4.8-10.8) K/ul RBC (4.20-5.40) M/uL Hgb (12.0-16.0) g/dl Hct (37.0-47.0) % MCV (80.0-100.0) fL MCH (25.0-34.0) pg MCHC (32.0-36.0) g/dL RDW Std Deviation (36.4-46.3) fL RDW Coeff of Lele (11.5-14.5) % Plt Count (130-400) K/uL MPV (9.4-12.4) fL Sodium (136-145) mmol/L Potassium (3.5-5.1) mmol/L Chloride (98-107) mmol/L Carbon Dioxide (21-32) mmol/L Anion Gap (3-11) BUN (6-23) mg/dl Creatinine (0.6-1.2) mg/dl Est Cr Clr Drug Dosing ml/min Est GFR ( Amer) ml/min Est GFR (Non-Af Amer) ml/min BUN/Creatinine Ratio (10-20) Glucose (70-99(Fasting)) mg/dl POC Glucose 119 H 163 H (70-99) mg/dl Calcium (8.6-10.3) mg/dl
[2024-02-24 06:50] LABS: BUN Creatinine Ratio 20.9 (10-20); Calcium 8.7 mg/dl (8.6-10.3); Creatinine Clr Calc Pharmacy 93.2 ml/min; Est GFR (African American) 110.7 ml/min; Est GFR (Non-African American) 95.5 ml/min; Potassium 3.3 mmol/L (3.5-5.1)
[2024-02-24 07:30] VITALS: RESP 16
--- NOTE | 2024-02-24 10:30 | Orthopedic Progress Note ---
Date of Service February 24, 2024 Assessment & Plan (1) Degenerative joint disease of knee, right: Plan: Postop day 2-status post right total knee arthroplasty with Dr. Chahal Home medications have been continued. She may be out of bed, weight-bear as tolerated with the knee immobilizer and a walker. PT and OT LISA stockings, AV impulse boots and Eliquis 2.5 mg p.o. twice daily to start tomorrow for DVT prophylaxis. Regular diet has been ordered. Encouraged ice and elevation. Case management for disposition needs. Plan for home with home health tomorrow. Prevena wound VAC dressing was applied to the right knee today. Dr. Chahal present for today's visit. Will plan for discharge to her home with home health later today. She does need another session with physical therapy to work on the steps to see how she does and if she is safe to go home. (2) Hypokalemia: Plan: Continue potassium to 20 mEq twice daily. Her potassium level did come up this morning. Would recommend outpatient follow-up with her family physician. Admission and Anticipated Discharge Date Admission Date: February 22, 2024 Subjective Doing better today. Was too tired to participate in PT this morning, they will return later to try the stairs and assess ability/safety to return home. Feeling less tired today. No further episodes of feeling faint or sweaty. Feels ready to go home and would like to do that today. Physical Exam Musculoskeletal: Exam of right lower extremity: Postoperative dressings were removed. Her incision is clean, dry and intact. It was cleansed with a sterile saline wipe and a Prevena wound VAC dressing was applied. Distal sensation is normal. Strength of her ankle is 5/5. Dorsalis pedis and posterior tibial pulses are 1+. She moves her toes freely. Tolerates gentle logrolling of the right hip and passive range of motion of the right knee about 10 degrees. She is unable to independently straight leg raise her right lower extremity. No significant effusion to the right knee. No prepatellar effusion. No evidence of ecchymosis or fracture blisters. There is mild erythema and warmth as expected postoperatively. Calf is supple and nontender. Results & Data Vital Signs (Past 12 Hours) Vital Signs Temp Pulse Resp BP BP Pulse Ox O2 Del Method 02/24/24 08:23 111/67 02/24/24 07:25 37.0 C 80 16 107/68 94 Room Air Laboratory Results 02/24/24 02/24/24 02/24/24 Range/Units 11:40 07:35 06:02 Sodium 140 (136-145) mmol/L Potassium 3.3 L (3.5-5.1) mmol/L Chloride 106 (98-107) mmol/L Carbon Dioxide 28 (21-32) mmol/L Anion Gap 6 (3-11) BUN 14 (6-23) mg/dl Creatinine 0.67 (0.6-1.2) mg/dl Est Cr Clr Drug Dosing 93.2 ml/min Est GFR ( Amer) 110.7 ml/min Est GFR (Non-Af Amer) 95.5 ml/min BUN/Creatinine Ratio 20.9 H (10-20) Glucose 106 H (70-99(Fasting)) mg/dl POC Glucose 104 H 106 H (70-99) mg/dl Calcium 8.7 (8.6-10.3) mg/dl 02/23/24 02/23/24 02/23/24 Range/Units 20:24 16:25 11:24 Sodium (136-145) mmol/L Potassium (3.5-5.1) mmol/L Chloride (98-107) mmol/L Carbon Dioxide (21-32) mmol/L Anion Gap (3-11) BUN (6-23) mg/dl Creatinine (0.6-1.2) mg/dl Est Cr Clr Drug Dosing ml/min Est GFR ( Amer) ml/min Est GFR (Non-Af Amer) ml/min BUN/Creatinine Ratio (10-20) Glucose (70-99(Fasting)) mg/dl POC Glucose 118 H 141 H 113 H (70-99) mg/dl Calcium (8.6-10.3) mg/dl
--- NOTE | 2024-02-24 11:52 | Discharge Summary ---
Date of Service February 24, 2024 Discharge Data Procedures Performed Operation Date: 02/22/24 07:00 Actual Procedures p Right Total Knee Arthroplasty(Right) - Deyvi Chahal MD Hospital Course (1) Degenerative joint disease of knee, right: Patient was kept in observation at [facility] after undergoing an elective right total knee arthroplasty with Dr. Chahal on February 22, 2024. Her surgery was performed with spinal anesthesia and a peripheral nerve block. Postoperatively, she was allowed out of bed, weight-bear as tolerated on right lower extremity with the assistance of a walker and knee immobilizer. Her home medications were continued. She was started on Eliquis 2.5 mg p.o. twice daily for DVT prophylaxis as well as AV impulse boots and LISA stockings. Physical therapy and Occupational Therapy consults were placed for assessment out of bed. Pain medication was prescribed and included Tylenol, oxycodone, tramadol and IV Dilaudid. She was given a regular type II diabetic diet. Glycemic control consult was placed for diabetic management while in-house. She had a CBC and PRP on postoperative day 1. Her PRP showed hypokalemia. Her potassium was increased to 20 mEq twice daily instead of daily. She was kept another day in the hospital for further evaluation. She also had an episode of near fainting while sitting on the toilet. On postoperative day 2 dressing change was performed and a Prevena wound VAC was placed on her right leg. She was given instructions for this. She was seen again by physical therapy and Occupational Therapy and was deemed safe for discharge to her home. Case management was involved for disposition needs. Home health was arranged. She was discharged to her home in stable condition on February 24, 2024. Discharge instructions were reviewed. All questions were answered. (2) Hypokalemia: See above.
[2024-02-24 13:39] VITALS: BP 138/75; PULSE 87; TEMP 98.8; O2SAT 99
== END 2024-02-24 14:49 | disposition home health service (06) ==
LOC: 3E 05:03 → ASU 05:03

== ENCOUNTER 2024-07-04 06:24 | Observation (INO) ==
--- NOTE | 2024-06-26 16:13 | Anesthesiology Consultation ---
Date of Service June 26, 2024 Assessment & Plan (1) Encounter for pre-operative examination: - check BSG am DOS. - Outpatient joint assessment: Patient is currently scheduled for inpatient pathway. If re-evaluated and patient/surgeon requests outpatient pathway, was not evaluated in PAT for outpatient joint program from anesthesia standpoint- determination would be pending surgeon's office assessment of pt motivation/support/completion of same day joint program preop requirements and anesthesiologist review DOS. - PCP office visit 06/19/24 [place]: "...Patient here at the request of Dr. Chahal for a preoperative evaluation prior to left knee replacement. Patient's history was reviewed. The patient was examined. The preoperative labs were reviewed. The patient's EKG was also reviewed (06/14/24). The patient was found to be at acceptable cardiopulmonary risk (per [place] Perioperative Risk and Revised Cardiac Risk Index) for the planned procedure and is okay to proceed..." - Per assessment analyst on 06/26/24: No known infectious disease contacts, current infectious disease symptoms in past 10 days or COVID positive test result in the past 30 days. Chart Review Chart Review: Acceptable Risk for Surgery and Patient NOT seen in Pre Admission Testing History Surgery Operation Date: 07/04/24 10:20 Proposed Procedures p Left Total Knee Arthroplasty - Deyvi Chahal MD Height/Weight Height: 5 ft Weight: 94.801 kg Allergies Allergy/AdvReac Type Severity Reaction Status Date / Time bee venom protein (honey bee) Allergy Severe Difficulty Verified 06/26/24 15:29 Breathing peach Allergy Severe Lips Swell Verified 06/26/24 15:29 Penicillins Allergy Intermediate Rash Verified 06/26/24 15:29 losartan AdvReac Severe Myalgia Verified 06/26/24 15:29 Medications Home Medications Medication Instructions Recorded Confirmed Last Taken inhalational spacing device #1 ea 06/28/19 06/19/24 Unknown (LiteAire MDI Chamber) multivitamin-ferrous 1 tab PO QAM 09/15/23 06/26/24 02/20/24 fumarate-folic acid 18 mg-400 mcg tablet (Centrum Women) lactobacillus combination no.9 4 4,000 mmu cells PO QAM 09/20/23 06/26/24 02/20/24 17:00 billion cell capsule (Adult 50 Plus Probiotic) losartan 50 mg-hydrochlorothiazide 0.5 tab PO BID #45 tabs 09/20/23 06/26/24 02/21/24 18:30 12.5 mg tablet albuterol sulfate 90 mcg/actuation See Rx Instructions .Route 12/07/23 06/26/24 1 Week Ago aerosol inhaler .COMPLEX #8.5 ea ~02/15/24 famotidine 20 mg tablet (Pepcid) 20 mg PO BID PRN Acid Reflux 12/15/23 06/26/24 1 Week Ago ~02/15/24 omega 5-zrn-owr-fish oil 60 mg-90 3 cap PO QAM 01/12/24 06/26/24 02/20/24 07:00 mg-500 mg capsule (Fish Oil) ipratropium 0.5 mg-albuterol 3 mg 3 ml inhalation QID PRN history of 01/17/24 06/26/24 1 Week Ago (2.5 mg base)/3 mL nebulization acute bronchitis with bronchospasm ~02/15/24 soln #1 mL montelukast 10 mg tablet 10 mg PO QPM #90 tabs 01/19/24 06/26/24 02/20/24 17:00 (Singulair) valacyclovir 500 mg tablet 500 mg PO BID PRN outbreak #6 tabs 01/19/24 06/26/24 3 Months Ago (Valtrex) ~11/22/23 fluticasone 250 mcg-salmeterol 50 1 inh inhalation BID #60 ea 01/24/24 06/26/24 1 Week Ago mcg/dose blistr powdr for ~02/15/24 inhalation (Wixela Inhub) potassium chloride 20 mEq 20 meq PO BID #28 tabs 03/13/24 06/26/24 Unknown tablet,extended release(part/cryst) metformin 500 mg tablet 500 mg PO BID #180 tabs 03/29/24 06/26/24 Unknown linaclotide 72 mcg capsule 72 mcg PO QAM #90 caps 04/27/24 06/26/24 Unknown (Linzess) topiramate 50 mg tablet 50 mg PO QAM #90 tabs 04/27/24 06/26/24 Unknown acetaminophen 500 mg tablet 1,000 mg PO Q8H PRN Pain 06/26/24 06/26/24 Unknown (Tylenol Extra Strength) fexofenadine 180 mg tablet 180 mg PO DAILY 06/26/24 06/26/24 Unknown magnesium 250 mg tablet 250 mg PO DAILY 06/26/24 06/26/24 Unknown Past Medical History Medical History (Updated 06/26/24 @ 16:08 by Angela Morel PA-C) Asthma Difficult intravenous access as per patient - instructed by [facility] Orthopedics to drink fluids up until midnight prior to 07/04/24 procedure GERD (gastroesophageal reflux disease) pt denies Hidradenitis suppurativa History of COVID-19 (~2022) 07/2020 + 05/2022>brain fog cont. + 2022-symptoms resolved Hx of migraines Hypertension controlled, stable per pt IBS (irritable bowel syndrome) IgA deficiency SAVANNAH (obstructive sleep apnea) CPAP Ovarian mass hx of > benign removed with hysterectomy Prediabetes on metformin Past Family History Family History Grandmother (Maternal) Breast cancer Father Diabetes Coronary heart disease Heart disease Pure hypercholesterolemia Myocardial infarction FH: coronary artery bypass surgery Hypertension Stroke Mother Diabetes Supraventricular tachycardia Hypertension Obesity Grandfather Heart disease Stroke Other No family history of adverse response to anesthesia Ulcerative colitis Denies family history of Colon cancer Ovarian cancer Prostate cancer Colorectal cancer Past Surgical History Surgical History History of anesthesia reaction slow to wake up History of section x1 History of cholecystectomy History of colonoscopy (06/2021) History of esophagogastroduodenoscopy (EGD) History of lumbar fusion History of right knee joint replacement 02/2024 History of tonsillectomy History of tooth extraction History of tubal ligation Hx laparoscopic cholecystectomy (10/06/22) Laparoscopic Cholecystectomy(Not Applicable) - Daniel Pearson MD, FACS S/P ERCP (09/18/22) Dr. Emeli Cosme S/P total abdominal hysterectomy and bilateral salpingo-oophorectomy Status post right knee replacement Social History Smoking Status: Never smoker tobacco type: cigarettes Do You Dip or Chew Tobacco: No Hx Alcohol Use: No Alcohol type: beer and hard liquor alcohol intake frequency: a few times a month Hx Substance Use: No substance use type: does not use Lab Results Anesthesia Preop Results Results Anesthesia Widget: WBC 8.4 Thousand/uL (3.8-10.8) 05/24/24 Hgb 11.7 g/dL (11.7-15.5) 05/24/24 Hct 36.1 % (35.0-45.0) 05/24/24 Plt 381 Thousand/uL (140-400) 05/24/24 Na 139 mmol/L (135-146) 05/24/24 K 3.8 mmol/L (3.5-5.3) 05/24/24 Cl 105 mmol/L (98-110) 05/24/24 CO2 24 mmol/L (20-32) 05/24/24 BUN 16 mg/dL (7-25) 05/24/24 Creat 0.64 mg/dL (0.50-1.05) 05/24/24 Glucose Level 98 mg/dL (65-99) 05/24/24 PT 10.5 Seconds (9.0-12.0) 06/14/24 PTT 28 Seconds (21-31) 06/14/24 INR 1.0 (0.9-1.1) 06/14/24 Blood Type A Positive 06/14/24 Antibody Screen NEGATIVE 06/14/24 Testing Electrocardiogram Date: 06/14/24 NSR, rate 79 bpm Chest X-Ray Date: 02/02/24 No acute cardiopulmonary findings. Echocardiogram Date: 09/28/23 EF 60-65% No LV regional wall motion abnormalities Borderline cLVH No significant valvular pathology Pulmonary Function Test Date: 06/23/24 Normal spirometry with a significant postbronchodilator response. Lung volumes suggest mild air trapping. Diffusion capacity is unremarkable.
[~2024-07-04 06:24] MED LIST changes: -B COCAP3 PO; +BUPIVACAINE 0.5 % 5 MG/1 ML PF 10ML VIAL ONE; -CALC600T9 PO; -CETI10TA99 PO; -GLC500 PO; -MULTTAB58 PO; +ROPIVACAINE 0.5% 5 MG/ML 30 ML VIAL ONE
[2024-07-04] MEDS ORDERED: fentaNYL citrate PF 100 MCG/2 ML VIAL ONE (06:29)
[2024-07-04] MEDS ORDERED: MIDAZOLAM HCL 1 MG/ML 2ML VIAL ONE ×2 (06:29→06:30)
--- NOTE | 2024-07-04 06:59 | History & Physical Bridge Note ---
Date of Service July 04, 2024 History & Physical Bridge Note I have examined the patient, reviewed the History & Physical and in the interval since the performance of the History & Physical I have noted the following changes of clinical significance: no changes noted
[2024-07-04] MEDS: LR 60ML/HR IV SCH (07:09)
[2024-07-04] MEDS: ACETAMINOPHEN 500 MG TAB PO SCH ×2 (07:21→14:15)
[2024-07-04] MEDS: FAMOTIDINE 20 MG TAB PO SCH (07:21)
[2024-07-04] MEDS: dexAMETHasone**PF** 10 MG/ML VIAL IV SCH (07:22)
[2024-07-04] MEDS: LR 500ML BOLUS, THEN 15ML/HR IV SCH (07:22)
[2024-07-04] MEDS: GABAPENTIN 600 MG DOSE PO SCH (07:22)
[2024-07-04] MEDS: METOCLOPRAMIDE HCL 10 MG TABLET PO SCH (07:22)
[2024-07-04] MEDS: CeleBREX 200 MG CAP PO SCH (07:22)
[2024-07-04] MEDS: oxyCODONE HCL 10 MG TABCR (OxyCONTIN) PO SCH (07:22)
[2024-07-04] MEDS: traMADol HCL 50 MG TABLET PO SCH (07:22)
[2024-07-04] MEDS ORDERED: ePHEDrine sulfate 50 MG/ML AMP IV PRN (07:36)
[2024-07-04] MEDS ORDERED: HYDROmorphone INJ 2 MG/ML SYR/VIAL IV PRN (07:36)
[2024-07-04] MEDS ORDERED: ATROPINE SULFATE 0.1 MG/ML 10ML SYR IV PRN (07:36)
[2024-07-04] MEDS ORDERED: PROMETHAZINE HCL 6.25 MG in SODIUM CHLORIDE 0.9% 50 ML IV PRN (07:36)
[2024-07-04] MEDS: TRANEXAMIC ACID 1,000 MG **IV Pre-op IV SCH (08:35)
[2024-07-04] MEDS: ceFAZolin 2000MG 2,000 MG/15 ML SYR IV SCH ×2 (09:04→18:06)
[2024-07-04] MEDS: ROPIV 0.5% 246mg, Ketorolac 30mg, EPINEPHrine 0.5mg in NSS INFIL SCH (09:30)
[2024-07-04] MEDS: ORTHO JOINT ANESTHETIC ONE (09:31)
[2024-07-04] MEDS: VANCOMYCIN HCL 1000MG/20ML VIAL ONE (10:43)
[2024-07-04] MEDS ORDERED: LIDOCAINE 2% 2 ML VIAL/AMP(20MG/ML) INFIL ONE (10:50)
[2024-07-04] MEDS ORDERED: ONDANSETRON INJ 2 MG/ML 2 ML VIAL ONE (10:50)
[2024-07-04] MEDS ORDERED: DEXAMETHASONE SOD INJ 4 MG/ML VIAL ONE (10:50)
[2024-07-04] MEDS ORDERED: PROPOFOL IV EMULSION 10 MG/ML 20 ML VIAL IV ONE (11:24)
--- NOTE | 2024-07-04 12:11 | Operative Report ---
Post Operative Report Pre & Post Diagnosis Operation Date: 07/04/24 07:50 Pre-Op Diagnosis: Left Knee Osteoarthritis Post-Op Diagnosis: Left Knee Osteoarthritis I identified the patient and participated in the time-out.: Yes Procedure Operation Date: 07/04/24 07:50 Actual Procedures p Left Total Knee Arthroplasty(Right) - Deyvi Chahal MD Surgeon Deyvi Chahal MD Entry Level Mechanical Engineer Gaby Blas PA-C Estimated Blood Loss 5 Findings Consistent with Post-Op Diagnosis Specimens Bone and soft tissue Description of Procedure I was present during the entire case. Please refer to Dr. Chahal's procedure note for full details. I assisted with positioning, draping, retraction, incision closure, and dressing application. I attest to the content of the Intraoperative Record and any orders documented therein. Any exceptions are noted below.
--- NOTE | 2024-07-04 12:11 | Operative Report ---
Post Operative Report Pre & Post Diagnosis Operation Date: 07/04/24 07:50 Pre-Op Diagnosis: Left Knee Osteoarthritis Post-Op Diagnosis: Left Knee Osteoarthritis I identified the patient and participated in the time-out.: Yes Procedure Operation Date: 07/04/24 07:50 Actual Procedures p Left Total Knee Arthroplasty(Right) - Deyvi Chahal MD Surgeon Deyvi Chahal M.D. Second Steward Gaby Frazier PA-C & Felix Santiago PA-C; no fellow or resident avail. Estimated Blood Loss 5 Findings Consistent with Post-Op Diagnosis Specimens bone and soft tissue Anesthesia Type MAC Spinal Regional Description of Procedure Patient was taken the operating room placed under spinal anesthesia with peripheral nerve block and IV sedation. She was given 2 g of IV Ancef preoperatively and 1 g of IV TXA preoperatively. Timeout was performed. She was prepped and draped in routine sterile fashion. Is present during entire case and assisted with positioning, draping, tissue retraction, trialing of implants, implantation of hardware, hemostasis, irrigation, closure and dressings. Please see Dr. Chahal's operative report for further details regarding today's procedure. Patient was awakened and transferred to the recovery room in stable condition. I attest to the content of the Intraoperative Record and any orders documented therein. Any exceptions are noted below.
--- NOTE | 2024-07-04 12:20 | Operative Report ---
Post Operative Report Pre & Post Diagnosis Operation Date: 07/04/24 07:50 Pre-Op Diagnosis: Left Knee Osteoarthritis Post-Op Diagnosis: Left Knee Osteoarthritis I identified the patient and participated in the time-out.: Yes Procedure Operation Date: 07/04/24 07:50 Actual Procedures p Left Total Knee Arthroplasty(Right) - Deyvi Chahal MD Surgeon Deyvi Chahal MD Licensed Nuclear Control Room Operator Gaby Blas PA-C Estimated Blood Loss 5 Findings Consistent with Post-Op Diagnosis Specimens Resected bone and soft tissue left knee Anesthesia Type MAC Spinal Regional Complications none Disposition Accompanied Patient To Recovery: No Disposition: Recovery Room Indications Brionna is 59 years old. She has severe osteoarthritis of her left knee refractory to nonsurgical methods of treatment. She wishes to have her knee replaced. She is status post a successful contralateral knee replacement. Description of Procedure Patient identified. Informed consent obtained. She identified the procedure site as the left knee. I marked with my initials. Preop surgical timeout performed. Preop dose of IV antibiotics given. TXA given. Positioned supine on the OR table. Tourniquet on the left thigh. Bump under the left calf. The leg was prepped and draped in usual sterile fashion. DVT prophylaxis intraoperatively with foot pumps. Postop early mobility Eliquis and mechanical devices/foot pumps. The exam under anesthesia showed varus deformity with a trace MCL mid position laxity otherwise the knee was stable. The range of motion 0/3/95. Limb exsanguinated with the Esmarch. Tourniquet inflated to 300 mmHg. Midline longitudinal incision was made followed by medial parapatellar arthrotomy. Soft tissue on the anterior aspect of the distal femur was resected. The retropatellar fat pad was removed and an extensile medial release was performed off the tibia. The patella was everted and the knee was flexed. Marginal osteophytes throughout the knee were removed particularly in the medial compartment. There were large osteophytes at the inferior border of the patella. The cruciate ligaments were intact and were sacrificed. The medial meniscus was largely deficient and was removed. There were grade 4 changes with bone wear in the medial compartment. The lateral meniscus and lateral compartment were otherwise intact. There were grade 4 changes in the patellofemoral compartment with bone wear. Several loose bodies were noted. 1 in the suprapatellar pouch and 2 in the posterior aspect of the knee. These were removed as encountered. The tibia was subluxated and a ship pilot hole was drilled into the proximal tibia in front of and between the tibial spines. The intramedullary alignment vincent was inserted. The a 3 degree cutting block was applied and aligned to the tibial tubercle and pinned into place to resect 10 mm off the lateral side corresponding to 6 mm off the medial side. The extra medullary alignment vincent was applied and the cut was in slight varus. The medial pin was adjusted. The lateral cut remained 10 but the medial pin cut was now 4 mm. Runnels was appropriate. The patellar tendon was protected and the cut was made. Tibia sized to a 4. Medial and posterior medial osteophytes removed. Extensile posteromedial release performed. A ship pilot hole was drilled into the distal femur just above the PCL.Intramedullary alignment vincent inserted. The guide was set to 5 degrees left knee valgus with an 11 mm thick cut based upon preoperative templating. The collateral ligaments were protected and the cut was made. The extension gap was a slightly asymmetric at 8. Slightly lax laterally. The epicondylar axis was marked out. Distal femoral sizing block applied and sized to a 5. The external rotation matched the epicondylar axis. The guide was pinned in the place. The collateral ligaments were protected and the cuts were made. The flexion gap was assessed after removing of large posterior medial and lateral osteophytes. The flexion gap was now 10 and the extension gap was a symmetric 10 after release of a little bit more medial. The box cutting guide was applied lateralized and the box cut was made. The femur was applied and the lug holes drilled. The tibia was prepared with the revision tibial mobile-bearing keel and punch. Trialing was performed with the 8 which showed full extension and good flexion but increased mid position laxity which was eliminated with the 10 mm thick insert which still gave full extension. The patella measured 21 mm in thickness. The guide was set to preserve 14 mm of bone. The cut was made and the residual patellar thickness was 13. The patella was aligned to the knee and its bois forte position with the knee slightly flexed and the patella was distal lysed and medialized. The patellar cut was made and the residual patellar thickness was 13. Patellar tracking showed slight lateralization and lift off with flexion. The trial components were removed. The tibial canal was plugged at the appropriate level. The bony surfaces were meticulously prepared with pulsatile lavage and then dried. 2 bags of Simplex P cement were mixed with 2 g of vancomycin total. Standard mix for 1 minute 15 seconds. Smears were applied to the posterior condyles and then while in a doughy state the femur tibia and patella were cemented into place and held with a trial spacer. Tourniquet let down after 105 minutes of inflation after the cement had hardened. The back of the knee was inspected for cement and removed as encountered. Tourniquet was let down with meticulous hemostasis and minimal bleeding. The patella still tended to lift off however with gentle thumb pressure it remained intact. I did release the superficial synovial layer which seemed to improve this. I did not think a lateral release was necessary. I trialed with the 8 and 10. The 10 gave full extension and trace varus valgus laxity in mid position. Symmetrical flexion and extension gaps. The trial was removed and the final 10 mm posterior stabilized polyethylene insert was applied. Knee was copiously irrigated. Ortho joint mix was injected into the back of the knee and throughout the remainder of the knee at the time of cement hardening. Copious irrigation was performed. Meticulous hemostasis. Composite patellar thickness was a little over 22 mm. [place] assisted flexion with extensor mechanism closed was estimated to be 110 degrees. The extensor mechanism was closed above the equator the patella with interrupted #2 FiberWire. Below the equator the patella with running and interrupted #1 Vicryl. The skin was closed in layers with 0 and 2-0 Vicryl followed by jazmin on the skin. The leg was cleaned wet and dry sponges and a saw sterile dressing was applied Xeroform 4 x 4's ABD soft wrap. Full-length Edy wrap. Patient was awakened from anesthesia difficulty and taken to recovery in stable condition. She was sent to the floor with a knee immobilizer. The resected bone and soft tissue were sent for specimen. There were no complications. Counts were correct and blood loss is estimated to be 5 cc. At the conclusion the operation spoke the patient's informed him my findings and postop instructions were given. Eliquis was started in the morning. Standard rehab for a total knee replacement. Weight-bear as tolerated. Components inserted were the the J[employer]J rotating platform attune knee. A 32 patella. A size 5 x 10 mm thick polyethylene insert a posterior stabilized 5 left regular sized femur and a size 4 revision mobile-bearing keeled tibial tray. I attest to the content of the Intraoperative Record and any orders documented therein. Any exceptions are noted below.
--- NOTE | 2024-07-04 12:49 | XRay Report ---
TWO VIEWS LEFT KNEE CLINICAL HISTORY: Postoperative examination. FINDINGS: AP and crosstable lateral portable views of the left knee are obtained. A left knee arthrop lasty is in near anatomic alignment. There has been undersurface remodeling of the patella. No acute fracture is seen. There are expected postoperative changes around the knee including skin clips, soft tissue edema, and subcutaneous gas. IMPRESSION: Expected postoperative changes status post left knee arthroplasty. No acute fracture is s een. ACT 112: Negative or not required by law. Electronically signed by: Jay Acosta M.D. 07/04/2024 12:47 PM
[2024-07-04] MEDS ORDERED: FAMOTIDINE 20 MG TAB PO PRN (13:22)
[2024-07-04] MEDS ORDERED: NALOXONE HCL 0.4 MG/1 ML VIAL/CARP IV PRN (13:22)
[2024-07-04] MEDS ORDERED: ALBUT/IPRATROP 3MG/0.5MG NEB 3 ML VIAL INH PRN (13:22)
[2024-07-04] MEDS ORDERED: bisacodyL 10 MG SUPP PR PRN (13:22)
[2024-07-04] MEDS ORDERED: hydrALAZINE HCL 20 MG/ML VIAL IV PRN (13:22)
[2024-07-04] MEDS ORDERED: METOCLOPRAMIDE HCL INJ 5 MG/ML 2 ML VIAL IV PRN (13:22)
[2024-07-04] MEDS ORDERED: PHARMACY GLYCEMIC MGMT CONSULT PRN (13:22)
[2024-07-04] MEDS ORDERED: MAGNESIUM HYDROXIDE SUSP 30 ML UDC PO PRN (13:22)
[2024-07-04] MEDS ORDERED: diphenhydrAMINE 50 MG/ML VIAL IV PRN (13:22)
[2024-07-04] MEDS ORDERED: HYDROmorphone INJ 1 MG/ML SYRINGE IV PRN (13:22)
[2024-07-04] MEDS ORDERED: HYDROmorphone INJ 0.5 MG/0.5 ML SYR IV PRN (13:22)
[2024-07-04] MEDS ORDERED: ALBUTEROL HFA 8 GM INHALER INH PRN (13:22)
[2024-07-04] MEDS ORDERED: FLUTICASONE/VILANTEROL 200/25MCG 14 PUFFS/INHALER INH PRN (13:56)
[2024-07-04] MEDS: KETOROLAC TROMETHAMINE 15 MG/ML VIAL IV SCH (14:14)
[2024-07-04] MEDS: SODIUM CHLORIDE 0.9% 1,000 ML IV SCH (14:15)
[2024-07-04] MEDS ORDERED: DEXTROSE 50% 50 ML SYRINGE IV PRN (14:30)
[2024-07-04] MEDS ORDERED: GLUCOSE 40% GEL 15 GM TUBE PO PRN (14:30)
[2024-07-04] MEDS ORDERED: GLUCAGON FOR INJ 1 MG VIAL SQ PRN (14:30)
[2024-07-04] MEDS ORDERED: CARBOHYDRATES FOR HYPOGLYCEMIA PO PRN (14:30)
[2024-07-04] MEDS ORDERED: GLUCOSE 10 TAB/TUBE PO PRN (14:30)
--- NOTE | 2024-07-04 14:45 | Anesthesiology Progress Note ---
Date of Service July 04, 2024 Anesthesia Post Procedure Vital Signs Vital Signs: Temp Pulse Pulse Resp BP Pulse Ox O2 Del Method 07/04/24 14:19 36.4 C L 89 16 129/83 94 Room Air 07/04/24 13:51 36.7 C 101 H 16 129/76 99 Room Air 07/04/24 13:20 36.4 C L 92 H 18 112/74 95 Room Air 07/04/24 13:00 83 12 123/67 93 Room Air 07/04/24 12:45 82 12 112/76 98 Nasal Cannula 07/04/24 12:35 37 C 103 H 18 121/76 98 Nasal Cannula 07/04/24 12:25 105 H 18 129/75 97 Nasal Cannula 07/04/24 12:15 115 H 16 138/72 96 Nasal Cannula 07/04/24 12:07 36.7 C 132 H 15 139/64 93 Room Air 07/04/24 06:50 36.5 C 106 H 20 170/87 H 99 Room Air O2 Flow Rate 07/04/24 14:19 07/04/24 13:51 07/04/24 13:20 07/04/24 13:00 07/04/24 12:45 2 07/04/24 12:35 2 07/04/24 12:25 2 07/04/24 12:15 2 07/04/24 12:07 07/04/24 06:50 Transfer of Care Handoff Completed per policy Notes Mental Status: alert / awake / arousable and participated in evaluation Nausea / Vomiting: adequately controlled Pain: adequately controlled Airway Patency, RR, SpO2: stable & adequate BP & HR: stable & adequate Hydration State: stable & adequate Anesthetic Complications: no major complications apparent and Pt Satisfied with anesthetic care
[2024-07-04] MEDS: traMADol HCL 50 MG TABLET PO PRN (14:56)
--- NOTE | 2024-07-04 16:53 | Orthopedic Progress Note ---
Date of Service July 04, 2024 Assessment & Plan (1) Knee joint replacement status: Plan: Doing well. Surgical findings discussed. X-rays are reviewed. Implants in good position without evidence of complication. Plan is to elevate the leg. We talked about pain control use the brace. Will plan on applying the wound VAC tomorrow. She is stable postop. Admission and Anticipated Discharge Date Admission Date: July 04, 2024 Subjective Her mom is in the hospital. Breathing okay. Hungry. No chest pain or shortness of breath. Having some soreness lateral midfoot knee and thigh. Physical Exam Physical Exam: DP and PT pulses are 1+ palpable. Intact sensation throughout the foot 5 out of 5 ankle and toe plantarflexion dorsiflexion eversion. Dressing clean and dry Results & Data Vital Signs (Past 12 Hours) Vital Signs Temp Pulse Pulse Resp BP BP Pulse Ox 07/04/24 16:34 36.3 C L 99 H 16 137/79 98 07/04/24 15:20 36.4 C L 84 16 149/85 H 95 07/04/24 14:19 36.4 C L 89 16 129/83 94 07/04/24 13:51 36.7 C 101 H 16 129/76 99 07/04/24 13:20 36.4 C L 92 H 18 112/74 95 07/04/24 13:00 83 12 123/67 93 07/04/24 12:45 82 12 112/76 98 07/04/24 12:35 37 C 103 H 18 121/76 98 07/04/24 12:25 105 H 18 129/75 97 07/04/24 12:15 115 H 16 138/72 96 07/04/24 12:07 36.7 C 132 H 15 139/64 93 07/04/24 06:50 36.5 C 106 H 20 170/87 H 99 O2 Del Method O2 Flow Rate 07/04/24 16:34 Room Air 07/04/24 15:20 Room Air 07/04/24 14:19 Room Air 07/04/24 13:51 Room Air 07/04/24 13:20 Room Air 07/04/24 13:00 Room Air 07/04/24 12:45 Nasal Cannula 2 07/04/24 12:35 Nasal Cannula 2 07/04/24 12:25 Nasal Cannula 2 07/04/24 12:15 Nasal Cannula 2 07/04/24 12:07 Room Air 07/04/24 06:50 Room Air
[2024-07-04] MEDS: INSULIN ASPART PER UNIT CHARGE SC SCH (18:06)
[2024-07-04] MEDS: TRANEXAMIC ACID / 0.7% NACL 1,000 MG/100 ML BAG IV SCH (18:06)
[2024-07-04] MEDS: oxyCODONE HCL IR 5 MG TAB (IMMEDIATE RELEASE) PO PRN (18:51)
[2024-07-04] MEDS: SENNA 8.6 MG TAB PO SCH (20:38)
[2024-07-04] MEDS: DOCUSATE SODIUM 100 MG CAP PO SCH (20:38)
[2024-07-04] MEDS: POTASSIUM CHLORIDE CRTAB 20 MEQ TABCR PO SCH (20:38)
[2024-07-04] MEDS: ONDANSETRON INJ 2 MG/ML 2 ML VIAL IV PRN (20:40)
[2024-07-04] MEDS: LOSARTAN/HCTZ 50/12.5MG TAB PO SCH (21:11)
[2024-07-04] MEDS: MONTELUKAST SODIUM 10 MG TABLET PO SCH (21:11)
[2024-07-05 06:30] LABS: Hematocrit (blood only) 31.3 % (37.0-47.0); Hemoglobin 10.3 g/dl (12.0-16.0); Mean Corpuscular Hemoglobin 27.8 pg (25.0-34.0); Mean Corpuscular Hgb Conc 32.9 g/dL (32.0-36.0); Mean Corpuscular Volume 84.4 fL (80.0-100.0); Platelet Count 322 K/uL (130-400); RDW Coefficient of Variation 13.5 % (11.5-14.5); RDW Standard Deviation 41.2 fL (36.4-46.3); Red Blood Count 3.71 M/uL (4.20-5.40); White Blood Count 9.99 K/ul (4.8-10.8)
[2024-07-05 07:07] LABS: BUN Creatinine Ratio 18.9 (10-20); Calcium 8.7 mg/dl (8.6-10.3); Creatinine Clr Calc Pharmacy 81.7 ml/min; Potassium 3.2 mmol/L (3.5-5.1)
[2024-07-05] MEDS: linaCLOtide 72 MCG CAPSULE PO SCH (09:06)
[2024-07-05] MEDS: FEXOFENADINE HCL 180 MG TAB PO SCH (09:07)
[2024-07-05] MEDS: ADVANCED PROBIOTIC 625 MG CAPSULE PO SCH (09:07)
[2024-07-05] MEDS: dexAMETHasone 4 MG TAB PO SCH (09:07)
--- NOTE | 2024-07-05 09:27 | Pharmacy Report ---
Pharmacy Glycemic Short Note 2 - Date of Service July 05, 2024 - Glycemic Short BSG Results (Last 24 hours): 07/04/24 07/04/24 07/04/24 12:29 16:25 20:24 Glucose POC Glucose 138 H 147 H 132 H 07/05/24 07/05/24 05:36 08:07 Glucose 105 H POC Glucose 101 H OUTPATIENT ANTIDIABETIC REGIMEN: * Metformin 500 mg PO BIDM HbA1c: * 6.2% (02/02/24) ASSESSMENT: * 59 yo F admitted on 07/04/24 postoperatively following a left total knee arthroplasty. Pharmacy has been consulted to assist with inpatient glycemic management. Patient is a Type 2 diabetic as an outpatient. Please refer to outpatient regimen and most recent HbA1c above. * BSGs yesterday were [phone] mg/dL. Patient received 10 mg of IV dexamethasone preoperatively. No basal insulin was ordered given postoperative BSGs. Patient did receive 4 units of correctional/prandial insulin. Is tolerating a T2DM diet. * Fasting BSG this AM was 101 mg/dL. Patient set to received 8 mg of PO Dexamethasone this morning then it will be discontinued. Will hold off on any basal insulin. No change to Novolog. PLAN FOR INPATIENT GLYCEMIC CONTROL: * Hold outpatient oral diabetes medications * Basal insulin * None * Bolus insulin * NovoLog per scale ACHS or Q6hrs while NPO * Goal Range: Low 110 mg/dL - High 140 mg/dL * Correction Factor: 30 mg/dL/unit * Nutritional / Prandial insulin per carb ratio of 1 unit per 12 grams CHO consumed
--- NOTE | 2024-07-05 09:43 | Orthopedic Progress Note ---
Date of Service July 05, 2024 Assessment & Plan (1) Knee joint replacement status: Plan: Doing well. General discharge instructions discussed. However she is in some pain and would feel more comfortable staying overnight which I think is reasonable. Use knee immobilizer. Will supplement potassium. Lizettequis started today. Routine course of postop IV antibiotics. Admission and Anticipated Discharge Date Admission Date: July 04, 2024 Subjective Doing well. Some pain. Had to cut PT short. Breathing okay. Tolerating a re gular diet. No chest pains or shortness of breath. The results of surgery were discussed and I reviewed with her x-ray findings. Physical Exam Physical Exam: Pedal pulses are palpable. Intact sensation with 5 out of 5 ankle and toe plantarflexion dorsiflexion and eversion strength. She is not able to do a straight leg raise. Dressing is changed. Some mild bloody drainage without any fluid collection present. Bruising around the margins of the incision some thigh discomfort. Ankle discomfort without swelling. Good range of motion. Incisional wound VAC applied.Swelling minimal Results & Data Vital Signs (Past 12 Hours) Vital Signs Temp Pulse Resp BP Pulse Ox O2 Del Method 07/05/24 06:29 36.6 C 77 18 124/74 97 Room Air 07/05/24 03:08 36.6 C 76 16 106/66 97 Room Air 07/04/24 22:51 36.7 C 84 18 129/68 95 Room Air Laboratory Results Laboratory Results WBC 9.99 K/ul (4.8-10.8) 07/05/24 05:36 RBC 3.71 M/uL (4.20-5.40) L 07/05/24 05:36 Hgb 10.3 g/dl (12.0-16.0) L 07/05/24 05:36 Hct 31.3 % (37.0-47.0) L 07/05/24 05:36 MCV 84.4 fL (80.0-100.0) 07/05/24 05:36 MCH 27.8 pg (25.0-34.0) 07/05/24 05:36 MCHC 32.9 g/dL (32.0-36.0) 07/05/24 05:36 RDW Std Deviation 41.2 fL (36.4-46.3) 07/05/24 05:36 RDW Coeff of Lele 13.5 % (11.5-14.5) 07/05/24 05:36 Plt Count 322 K/uL (130-400) 07/05/24 05:36 MPV 10.0 fL (9.4-12.4) 07/05/24 05:36 Sodium 140 mmol/L (136-145) 07/05/24 05:36 Potassium 3.2 mmol/L (3.5-5.1) L 07/05/24 05:36 Chloride 103 mmol/L (98-107) 07/05/24 05:36 Carbon Dioxide 30 mmol/L (21-32) 07/05/24 05:36 Anion Gap 7 (3-11) 07/05/24 05:36 BUN 14 mg/dl (6-23) 07/05/24 05:36 Creatinine 0.74 mg/dl (0.6-1.2) 07/05/24 05:36 Est Cr Clr Drug Dosing 81.7 ml/min 07/05/24 05:36 eGFR 91.99 07/05/24 05:36 BUN/Creatinine Ratio 18.9 (10-20) 07/05/24 05:36 Glucose 105 mg/dl (70-99(Fasting)) H 07/05/24 05:36 POC Glucose 101 mg/dl (70-99) H 07/05/24 08:07 Calcium 8.7 mg/dl (8.6-10.3) 07/05/24 05:36 Impressions Knee X-Ray 07/04/24 12:25 TWO VIEWS LEFT KNEE CLINICAL HISTORY: Postoperative examination. FINDINGS: AP and crosstable lateral portable views of the left knee are obtained. A left knee arthroplasty is in near anatomic alignment. There has been undersurface remodeling of the patella. No acute fracture is seen. There are expected postoperative changes around the knee including skin clips, soft tissue edema, and subcutaneous gas. IMPRESSION: Expected postoperative changes status post left knee arthroplasty. No acute fracture is seen. ACT 112: Negative or not required by law. Electronically signed by: Jay Acosta M.D. 07/04/2024 12:47 PM
[2024-07-05] MEDS: MAGNESIUM OXIDE 400 MG TAB PO SCH (10:05)
[2024-07-05] MEDS: TOPIRAMATE 50 MG TAB PO SCH (10:05)
[2024-07-05] MEDS: APIXABAN 2.5 MG TAB PO SCH (10:05)
[2024-07-05] MEDS: CEROVITE ADV FORMULA TAB PO SCH (10:05)
[2024-07-05] MEDS: OMEGA-3 (PURIFIED FISH OIL) 1 GM CAP PO SCH (10:52)
[2024-07-05] MEDS: POTASSIUM CHLORIDE 20 MEQ/15 ML UDC PO ONE (10:53)
[2024-07-05 20:35] VITALS: O2SAT 97
[2024-07-05] MEDS: CeleBREX 200 MG CAP PO SCH (20:40)
[2024-07-06 06:50] LABS: BUN Creatinine Ratio 17.7 (10-20); Calcium 8.9 mg/dl (8.6-10.3); Creatinine Clr Calc Pharmacy 97.6 ml/min; Potassium 3.4 mmol/L (3.5-5.1)
[2024-07-06 07:36] VITALS: RESP 16; TEMP 98.1
[2024-07-06] MEDS: metFORMIN HCL 500 MG TAB PO SCH (09:27)
--- NOTE | 2024-07-06 09:30 | Pharmacy Report ---
Pharmacy Glycemic Sign Off Nt - Date of Service July 06, 2024 - Assessment & Plan ASSESSMENT: * Pharmacy was consulted by Karin on 07/05/24 for glycemic control and to write orders per [facility] inpatient glycemic control protocol. * Patient has not required any insulin yesterday. * BSGs ranging from 101 to 132 mg/dl - all within or near goal. * Last dose of PO Dexamethasone was yesterday morning. * Do not anticipate further changes in patient status that would quickly deterio rate glycemic control (i.e. patient to be NPO for upcoming procedure, new steroids, starting tube feedings, etc). * Patient seems to be tolerating diet and refused Novolog coverage for breakfast today. So Novolog carb ratio removed. * Added back patient's home Metformin regimen. PLAN FOR INPATIENT GLYCEMIC CONTROL: No changes needed to current regimen. * Metformin 500 mg PO BID with meals * Continue NovoLog per scale ACHS/Q6hrs while NPO * Goal range = 110-140 mg/dl * CF = 30 mg/dl/unit * CR = none * Pharmacy is signing off of glycemic consult and will no longer be making adjustments to inpatient regimen. Please feel free to re-consult if needed. Thank you.
--- NOTE | 2024-07-06 11:30 | Orthopedic Progress Note ---
Date of Service July 06, 2024 Assessment & Plan (1) S/P total knee arthroplasty: Plan: Postop day 2-status post left TKA by Dr. Chahal. Has been doing well out of bed. Seen by physical therapy and Occupational Therapy. Ambulating with a walker. May weight-bear as tolerated in her left lower extremity. Continue the knee immobilizer for the next 2 to 4 days until she regains good quad control. Eliquis was started yesterday for DVT prophylaxis. Continue teds and AV impulse boots while in house. Continue regular diet. Continue pain medications as needed. Reminded her that she does need to ask for these pain medications as they are not scheduled. May be out of bed as tolerated with assistance. Plan for discharge home later today. Case management for disposition needs. She has been arranged for home health. Continue the Prevena wound VAC for approximately 7 days after her procedure. Home health will remove this. Discharge instructions were reviewed. All questions were answered. Dr. Chahal present for today's visit. She understands and agrees to the plan. (2) Hypokalemia: Plan: She was given a potassium supplement yesterday. She is on 20 mEq of potassium twice daily. Encouraged her to continue her potassium supplements and eating at daily banana. This is chronic for her and we will continue to monitor. Admission and Anticipated Discharge Date Admission Date: July 04, 2024 Subjective Resting in bed. States that she is very tired today. She did have pain medicine about half an hour ago. Overall is doing relatively well. She does have more pain in the left knee than she had in the right knee at her last surgery. She states she is a little nervous about going home with the pain that she is having. The pain medication is helping. She has had no lightheadedness or dizziness. No chest pains or shortness of breath. Denies any nausea or vomiting. Has had a normal diet. Has been out of bed with physical therapy walking in the halls. States that she has more of a burning sensation on the lateral aspect of her knee especially with standing than she has had in the past. Physical Exam Musculoskeletal: Exam of her left lower extremity: She is unable to independently lift her leg off the bed today. There is a pillow behind her left knee which was moved down to behind her left calf. The knee immobilizer in place and was removed. The Prevena is in place and functioning. There is no effusion to the left knee. There is no skin blisters on the lateral aspect of the knee. It is not tender with palpation. There are some mild ecchymosis along the medial and lateral sides of the incision. Calf is supple and nontender. Full ankle range of motion and normal strength. Distal pulses are 1+. Sensation is normal t hroughout the left foot and lower leg. Results & Data Vital Signs (Past 12 Hours) Vital Signs Temp Pulse Resp BP Pulse Ox O2 Del Method 07/06/24 07:36 36.7 C 96 H 16 127/79 97 Room Air Laboratory Results 07/06/24 07/06/24 07/05/24 Range/Units 07:43 06:05 20:31 Sodium 140 (136-145) mmol/L Potassium 3.4 L (3.5-5.1) mmol/L Chloride 102 (98-107) mmol/L Carbon Dioxide 29 (21-32) mmol/L Anion Gap 9 (3-11) BUN 11 (6-23) mg/dl Creatinine 0.62 (0.6-1.2) mg/dl Est Cr Clr Drug Dosing 97.6 ml/min eGFR 101.25 BUN/Creatinine Ratio 17.7 (10-20) Glucose 103 H (70-99(Fasting)) mg/dl POC Glucose 109 H 132 H (70-99) mg/dl Calcium 8.9 (8.6-10.3) mg/dl 07/05/24 07/05/24 Range/Units 16:43 11:36 Sodium (136-145) mmol/L Potassium (3.5-5.1) mmol/L Chloride (98-107) mmol/L Carbon Dioxide (21-32) mmol/L Anion Gap (3-11) BUN (6-23) mg/dl Creatinine (0.6-1.2) mg/dl Est Cr Clr Drug Dosing ml/min eGFR BUN/Creatinine Ratio (10-20) Glucose (70-99(Fasting)) mg/dl POC Glucose 129 H 109 H (70-99) mg/dl Calcium (8.6-10.3) mg/dl
--- NOTE | 2024-07-06 11:38 | Discharge Summary ---
Date of Service July 06, 2024 Discharge Data Procedures Performed Operation Date: 07/04/24 07:50 Actual Procedures p Left Total Knee Arthroplasty(Left) - Deyvi Chahal MD Hospital Course (1) S/P total knee arthroplasty: Patient was kept in observation at [facility] after undergoing an elective left total knee arthroplasty by Dr. Chahal. Her surgery was performed with spinal anesthesia and a peripheral nerve block. She was given 2 g of IV Ancef for surgical prophylaxis which was continued for 24 hours after surgery. She was also given 1 g of TXA operatively and another dose 6 hours after that initial dose. She tolerated the procedure well without any intraoperative complications. Postoperatively in the recovery room she had x- rays of her left knee which showed a stable left knee prosthesis with no evidence of hardware failure or fracture. She was allowed out of bed, weight- bear as tolerated with the assistance of a walker and a knee immobilizer on her left leg. Her regular home medications were continued. Pain medication as prescribed and consisted of Tylenol, tramadol, oxycodone, Toradol and IV Dilaudid. Physical therapy and Occupational Therapy consults were placed. She was allowed out of bed, weight-bear as tolerated with the assistance of a walker. She did well out of bed with physical therapy. On postoperative day 1 Prevena wound VAC was placed on her left knee. The incision was clean, dry and intact. She did have some hypokalemia on postoperative day 1 and she was given an additional potassium supplement in addition to her regular potassium 20 mEq twice daily. Eliquis was started on postoperative day 1 2.5 mg p.o. twice daily for DVT prophylaxis. She was also provided with thigh-high LISA stockings and AV impulse boots during her inpatient stay to prevent deep vein thrombosis and embolisms. Due to her inadequate pain control on postoperative day 1 she was kept overnight for pain control. Potassium was rechecked and remained slightly low at this time. This is chronic for her. She had physical therapy and Occupational Therapy on postoperative day 2 and did well out of bed. She was deemed safe for discharge to home. Case management was involved during her stay for set up of home health. She was discharged to home health in stable condition on postoperative day 2 July 06, 2024 with her spouse. Discharge instructions were reviewed with the patient. All questions were answered. Her home medications were continued and new prescriptions were sent to her pharmacy. (2) Hypokalemia:
[2024-07-06 12:24] VITALS: BP 129/83; PULSE 93
== END 2024-07-06 13:34 | disposition home health service (06) ==
LOC: 3E 06:24 → ASU 06:24